=== PATIENT | female | born 1935 | race Caucasian/White ===

== ENCOUNTER 2019-11-01 11:06 | Day surgery (SDC) | payer MEDICARE, BC ==
[2019-11-01] MEDS ORDERED: Depo-Medrol 40 MG/ML IM ONE (11:07)
[2019-11-01] MEDS ORDERED: Xylocaine 1% Vial 30 ML PF IJ ONE (11:07)
[2019-11-01] MEDS ORDERED: Marcaine 0.5% SDV 10 ML IJ ONE (11:07)
[2019-11-01] MEDS ORDERED: DIPRIVAN 200 MG/20 ML IV ONE (12:42)
[2019-11-01] MEDS ORDERED: Ketamine HCl 50 MG/ML ONE (12:42)
--- NOTE | 2019-11-01 13:49 | XRAY ---
20 seconds fluoroscopy time in surgery for bilateral SI joints.
--- NOTE | 2019-11-01 13:49 | XRAY ---
Indication: Bilateral SI joint injection. Intraoperative fluoroscopy was provided for 20 seconds. 4 digital spot images submitted for interpretation demonstrates posterior needle tip projecting over the inferior left and right SI joints. Correlate with intraoperative findings/report. Incidental partially visualized lower lumbar posterior fixation hardware.
[2019-11-01] MEDS ORDERED: Lactated Ringers 1,000 ML IV ONE (15:56)
== END 2019-11-01 13:10 | disposition home or self-care (01) ==
LOC: SDC-PAIN 11:06
PROVIDERS: ATTEND Psychiatry & Neurology Pain Medicine
DX: M46.1 Sacroiliitis, not elsewhere classified (principal); I10 Essential (primary) hypertension; R01.1 Cardiac murmur, unspecified; G47.30 Sleep apnea, unspecified; Z86.718 Personal history of other venous thrombosis and embolism; Z79.01 Long term (current) use of anticoagulants; Z79.899 Other long term (current) drug therapy
CPT/HCPCS: 72202; 77002; G0260; 27096; 99100; J1030; J2001; J2704

== ENCOUNTER 2020-02-21 11:39 | Day surgery (SDC) | payer MEDICARE, BC ==
[~2020-02-21 11:39] MED LIST: DIPRIVAN 200 MG/20 ML IV ONE; Ketamine HCl 50 MG/ML ONE
[2020-02-21] MEDS ORDERED: Decadron 4 MG INJ IV ONE (11:40)
[2020-02-21] MEDS ORDERED: Xylocaine-Mpf 2% 5 Ml Vial IJ ONE (11:40)
--- NOTE | 2020-02-21 14:32 | XRAY ---
Indication: Right C2-C4 MBB. Intraoperative fluoroscopy was provided for 34 seconds. 2 digital spot images submitted for interpretation demonstrates posterior needle tips projecting over the expected right C2-C4 nerve roots. Correlate with intraoperative findings/report.
--- NOTE | 2020-02-21 14:34 | XRAY ---
34 seconds fluoroscopy time in surgery for right C2 -C4 MBB.
[2020-02-21] MEDS ORDERED: Lactated Ringers 1,000 ML IV ONE (16:49)
== END 2020-02-21 14:00 | disposition home or self-care (01) ==
LOC: SDC-PAIN 11:39 → EDSTATUS 18:20
PROVIDERS: ATTEND Psychiatry & Neurology Pain Medicine
DX: M47.812 Spondylosis without myelopathy or radiculopathy, cervical region (principal); I10 Essential (primary) hypertension; G47.30 Sleep apnea, unspecified; R01.1 Cardiac murmur, unspecified; Z86.718 Personal history of other venous thrombosis and embolism; Z79.899 Other long term (current) drug therapy
CPT/HCPCS: 64490; 64491; 72020; 77002; J1100; J2704

== ENCOUNTER 2020-03-13 09:30 | Day surgery (SDC) | payer MEDICARE, BC ==
[2020-03-13] MEDS ORDERED: Depo-Medrol 40 MG/ML IM ONE (09:31)
[2020-03-13] MEDS ORDERED: BUPIVACAINE 0.5% VIAL IJ ONE (09:31)
[2020-03-13] MEDS ORDERED: Ketamine HCl 50 MG/ML ONE (11:41)
[2020-03-13] MEDS ORDERED: DIPRIVAN 200 MG/20 ML IV ONE (11:41)
--- NOTE | 2020-03-13 12:56 | XRAY ---
33 seconds of fluoroscopy was used in surgery for bilateral SI joints injection.
--- NOTE | 2020-03-13 12:56 | XRAY ---
Indication: Bilateral SI joint injection. Intraoperative fluoroscopy was provided for 33 seconds. 4 digital spot images submitted for interpretation demonstrates posterior needle tip projecting over the inferior left and right SI joint. Correlate with intraoperative findings/report.
[2020-03-13] MEDS ORDERED: Lactated Ringers 1,000 ML IV ONE (15:42)
== END 2020-03-13 12:05 | disposition home or self-care (01) ==
LOC: SDC-PAIN 09:30
PROVIDERS: ATTEND Psychiatry & Neurology Pain Medicine
DX: M46.1 Sacroiliitis, not elsewhere classified (principal); I10 Essential (primary) hypertension; G47.30 Sleep apnea, unspecified; R01.1 Cardiac murmur, unspecified; Z79.899 Other long term (current) drug therapy
CPT/HCPCS: 72202; 77002; G0260; 27096; 99100; J1030; J2704

== ENCOUNTER 2021-03-05 11:04 | Day surgery (SDC) | payer MEDICARE, BC ==
[2021-03-05] MEDS ORDERED: Depo-Medrol 40 MG/ML IM ONE (11:05)
[2021-03-05] MEDS ORDERED: BUPIVACAINE 0.5% VIAL IJ ONE (11:05)
[2021-03-05] MEDS ORDERED: DIPRIVAN 200 MG/20 ML IV ONE (13:18)
[2021-03-05] MEDS ORDERED: Lactated Ringers 1,000 ML IV ONE (14:38)
--- NOTE | 2021-03-05 14:38 | XRAY ---
Indication: Left knee injection. Intraoperative fluoroscopy provided for 5 seconds. Single digital spot image submitted for interpretation demonstrates needle tip projecting over the left femur intercondylar notch. Small amount of contrast injected for needle tip placement. Correlate with intraoperative findings/report.
--- NOTE | 2021-03-05 15:10 | XRAY ---
5 seconds fluoroscopy time in surgery for intra-articular and anserine bursa injections of the left knee.
== END 2021-03-05 13:45 | disposition home or self-care (01) ==
LOC: SDC-PAIN 11:04
PROVIDERS: ATTEND Psychiatry & Neurology Pain Medicine
DX: M17.12 Unilateral primary osteoarthritis, left knee (principal); M70.52 Other bursitis of knee, left knee; I10 Essential (primary) hypertension; R01.1 Cardiac murmur, unspecified; Z79.01 Long term (current) use of anticoagulants; Z79.899 Other long term (current) drug therapy
CPT/HCPCS: 20610; 73560; 77002; J1030; J2704; Q9966

== ENCOUNTER 2021-08-21 20:51 | Emergency (ER) | payer MEDICARE, BC ==
[2021-08-21] MEDS ORDERED: solu-MEDROL 125 MG, Sterile H2O 10 ml 2 ML IV ONE ×4 (20:57→21:55)
--- NOTE | 2021-08-21 20:57 | ERPHSYRPT ---
- History of Present Illness Time Seen by Provider: 08/21/21 20:56 Source: patient, EMS Exam Limitations: clinical condition Physician History: This is an 86-year-old white female patient of Dr. Rushing who has a history of hypertension and hypothyroidism and has been coughing intermittently for 2 weeks. However the last 24 hours her coughing is worse and she has had sh ortness of breath as well. She denies chest pain. She has no abdominal pain. She said no nausea vomiting or diarrhea. Patient was brought into the emergency department via ambulance service. Her room air oxygenation upon arrival is 94 to 96%. Timing/Duration: week(s) (2) Activities at Onset: activity Severity of Dyspnea-Max: moderate Severity of Dyspnea-Current: mild (To moderate) Possible Cause: occasional episodes Associated Symptoms: cough, No chest pain/discomfort, No wheezing Allergies/Adverse Reactions: methotrexate Adverse Reaction (Severe, Verified 08/21/21 21:39) Lightheadedness Home Medications: Amoxicillin/Potassium Clav [Amox-Clav 875-125 mg Tablet] 1 tab PO BID 08/21/21 [History] Benzonatate 100 mg PO TID 08/21/21 [History] Carvedilol 6.25 mg [Coreg 6.25 MG] 1 tab PO BID 08/21/21 [History] Famotidine 40 mg PO DAILY 08/21/21 [History] Levothyroxine Sodium [Levothyroxine] 25 mcg PO DAILY 08/21/21 [History] Metoprolol Succinate 50 mg [Toprol Xl 50 MG] 1 tab PO HS 08/21/21 [History] Tramadol HCl 50 mg [Ultram 50 mg] 1 tab PO QID PRN 08/21/21 [History] Travel Risk - International Travel Have you traveled outside of the country in past 3 weeks: No - Coronavirus Screening Are you exhibiting any of the following symptoms?: Yes Symptoms: Cough: New Onset, Shortness of Breath Close contact with a COVID-19 positive Pt in past 14-21 Days: No - Review of Systems Constitutional: No Symptoms Eyes: No Symptoms Ears, Nose, & Throat: No Symptoms Respiratory: Cough, Dyspnea Cardiac: No Symptoms Abdominal/Gastrointestinal: No Symptoms Genitourinary Symptoms: No Symptoms Musculoskeletal: No Symptoms Skin: No Symptoms Neurological: No Symptoms Psychological: No Symptoms Endocrine: No Symptoms Hematologic/Lymphatic: No Symptoms Immunological/Allergic: No Symptoms All Other Systems: Reviewed and Negative - Past Medical History Pertinent Past Medical History: Yes Neurological History: Stroke Cardiac History: Arrhythmia, Coronary Artery Disease, High Cholesterol, Hypertension, Myocardial Infarction ([place]) Respiratory History: Bronchitis Endocrine Medical History: Hypothyroidism Musculoskeletal History: Degenerative Disk Disease Other Medical History: DEPRESSION, 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 SX HX LUMBAR LAMINECTOMY AND FUSION 2018, RIGHT CAROTID ENDARTERECTOMY - Nursing Vital Signs Nursing Vital Signs: Initial Vital Signs Temperature 99.5 F 08/21/21 20:52 Pulse Rate 104 H 08/21/21 20:52 Respiratory Rate 20 08/21/21 20:52 Blood Pressure 167/85 08/21/21 20:52 O2 Sat by Pulse Oximetry 95 08/21/21 20:52 Pain Scale Pain Intensity 0 - Physical Exam General Appearance: mild distress, alert, anxiety, obese Eye Exam: PERRL/EOMI, eyes nml inspection Ears, Nose, Throat Exam: hearing grossly normal, normal ENT inspection, normal pharynx Neck Exam: normal inspection, non-tender, supple, full range of motion Respiratory Exam: normal breath sounds, lungs clear, airway intact, No chest tenderness, No respiratory distress Cardiovascular/Chest Exam: normal heart sounds, regular rate/rhythm Abdominal/Gastrointestinal Exam: soft, normal bowel sounds, No tenderness Rectal Exam: not done Extremity Exam: non-tender Neurologic Exam: alert, oriented x 3, cooperative, 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 tested, normal mood/affect, sensation nml Skin Exam: normal color, warm, dry Lymphatic Exam: No adenopathy SpO2 Interpretation: normal O2 Delivery: Room Air Ordered Tests: Active Orders 24 hr Category Date Time Status Fire Warden STAT Care 08/21/21 20:57 Active EKG-ER Only STAT Care 08/21/21 20:57 Active IV Insertion STAT Care 08/21/21 20:57 Active Pulse Oximetry (ED) STAT Care 08/21/21 20:57 Active CHEST 1 VIEW (PORTABLE) Stat Exams 08/21/21 21:34 Taken CHEST WITH CONTRAST [CT] Stat Exams 08/21/21 22:52 Taken BLOOD CULTURE Stat Lab 08/21/21 21:40 Received CBC W DIFF Stat Lab 08/21/21 21:00 Completed CMP Stat Lab 08/21/21 21:00 Completed CULTURE,SPUTUM Stat Lab 08/21/21 21:16 Ordered D-DIMER QUANTITATIVE Stat Lab 08/21/21 21:40 Completed Lactic Acid Stat Lab 08/21/21 21:13 Completed NT PRO BNP Stat Lab 08/21/21 21:00 Completed TROPONIN Q3H Lab 08/21/21 21:00 Completed TROPONIN Q3H Lab 08/22/21 00:00 Ordered TROPONIN Q3H Lab 08/22/21 03:00 Ordered TROPONIN Q3H Lab 08/22/21 06:00 Ordered TROPONIN Q3H Lab 08/22/21 09:00 Ordered Medication Summary Discontinued Medications Generic Name Dose Route Start Last Admin Trade Name Freq PRN Reason Stop Dose Admin Hydrocodone Bitart/Acetaminophen 10 ml 08/21/21 21:55 08/21/21 22:01 Hydrocodone/Acetaminophen 5 Ml Udcup PO 08/21/21 21:56 10 ml STAT STA Administration Hydrocodone Bitart/Acetaminophen Confirm 08/21/21 22:00 Hydrocodone/Acetaminophen 5 Ml Udcup Administered 08/21/21 22:01 Dose 10 ml .ROUTE .STK-MED ONE Methylprednisolone Sodium 0 mg 08/21/21 20:57 08/21/21 21:11 Succinate 125 mg/ Sterile IV 08/21/21 20:58 125 mg Water 2 ml STAT ONE Administration Methylprednisolone Sodium 0 mg 08/21/21 21:55 08/21/21 22:01 Succinate 125 mg/ Sterile IV 08/21/21 21:56 Not Given Water 2 ml STAT ONE Sodium Chloride 500 mls @ 500 mls/hr 08/21/21 22:29 08/21/21 22:35 Sodium Chloride 0.9% 500 Ml IV 08/21/21 23:28 500 mls/hr .Q1H ONE Administration Sodium Chloride Confirm 08/21/21 22:35 Sodium Chloride 0.9% 500 Ml Administered 08/21/21 22:36 Dose 500 mls @ ud IV .STK-MED ONE Methylprednisolone Sodium Succinate Confirm 08/21/21 21:08 Methylprednis Sod Succ 125 Mg/2 Ml Vial Administered 08/21/21 21:09 Dose 125 mg .ROUTE .STK-MED ONE Sterile Water Confirm 08/21/21 21:08 Water For Injection,Sterile 10 Ml Vial Administered 08/21/21 21:09 Dose 10 ml IJ .STK-MED ONE Lab/Rad Data: Laboratory Result Diagrams 08/21/21 21:00 08/21/21 21:00 Laboratory Results 08/21/21 08/21/21 08/21/21 Range/Units 22:15 21:40 21:40 WBC (4.0-10.5) K/mm3 RBC (4.1-5.4) M/mm3 Hgb (12.0-16.0) gm/dl Hct (35-47) % MCV (78-100) fl MCH (26-32) pg MCHC (32-36) g/dl RDW (11.5-14.0) % Plt Count (150-450) K/mm3 MPV (7.5-11.0) fl Gran % (36.0-66.0) % Eos # (Auto) (0-0.5) Absolute Lymphs (auto) (1.0-4.6) Absolute Monos (auto) (0.0-1.3) Lymphocytes % (24.0-44.0) % Monocytes % (0.0-12.0) % Eosinophils % (0.00-5.0) % Basophils % (0.0-0.4) % Absolute Granulocytes (1.4-6.9) Basophils # (0-0.4) D-Dimer 640 H* (215-500) ng/mL Sodium (137-145) mmol/L Potassium (3.5-5.1) mmol/L Chloride (98-107) mmol/L Carbon Dioxide (22-30) mmol/L Anion Gap (5-15) MEQ/L BUN (7-17) mg/dL Creatinine (0.52-1.04) mg/dL Estimated GFR ML/MIN Glucose (74-106) mg/dL Lactic Acid (0.4-2.0) Calcium (8.4-10.2) mg/dL Total Bilirubin (0.2-1.3) mg/dL AST (14-36) U/L ALT (0-35) U/L Alkaline Phosphatase (38-126) U/L Troponin I (0.000-0.034) ng/mL NT-Pro-B Natriuret Pep (0-1800) pg/mL Serum Total Protein (6.3-8.2) g/dL Albumin (3.5-5.0) g/dL Influenza Type A Ag NEGATIVE (NEGATIVE) Influenza Type B Ag NEGATIVE (NEGATIVE) RSV (PCR) NEGATIVE (Negative) SARS-CoV-2 (PCR) NEGATIVE (NEGATIVE) Group A Strep Antibody NOT DETECTED (NEGATIVE) 08/21/21 08/21/21 08/21/21 Range/Units 21:13 21:00 21:00 WBC (4.0-10.5) K/mm3 RBC (4.1-5.4) M/mm3 Hgb (12.0-16.0) gm/dl Hct (35-47) % MCV (78-100) fl MCH (26-32) pg MCHC (32-36) g/dl RDW (11.5-14.0) % Plt Count (150-450) K/mm3 MPV (7.5-11.0) fl Gran % (36.0-66.0) % Eos # (Auto) (0-0.5) Absolute Lymphs (auto) (1.0-4.6) Absolute Monos (auto) (0.0-1.3) Lymphocytes % (24.0-44.0) % Monocytes % (0.0-12.0) % Eosinophils % (0.00-5.0) % Basophils % (0.0-0.4) % Absolute Granulocytes (1.4-6.9) Basophils # (0-0.4) D-Dimer (215-500) ng/mL Sodium 138 (137-145) mmol/L Potassium 4.1 (3.5-5.1) mmol/L Chloride 104 (98-107) mmol/L Carbon Dioxide 22 (22-30) mmol/L Anion Gap 16.0 H (5-15) MEQ/L BUN 20 H (7-17) mg/dL Creatinine 0.95 (0.52-1.04) mg/dL Estimated GFR 59.6 ML/MIN Glucose 127 H (74-106) mg/dL Lactic Acid 1.2 (0.4-2.0) Calcium 8.7 (8.4-10.2) mg/dL Total Bilirubin 0.90 (0.2-1.3) mg/dL AST 31 (14-36) U/L ALT 19 (0-35) U/L Alkaline Phosphatase 51 (38-126) U/L Troponin I 0.021 (0.000-0.034) ng/mL NT-Pro-B Natriuret Pep 1340 (0-1800) pg/mL Serum Total Protein 7.3 (6.3-8.2) g/dL Albumin 3.9 (3.5-5.0) g/dL Influenza Type A Ag (NEGATIVE) Influenza Type B Ag (NEGATIVE) RSV (PCR) (Negative) SARS-CoV-2 (PCR) (NEGATIVE) Group A Strep Antibody (NEGATIVE) 08/21/21 Range/Units 21:00 WBC 8.2 (4.0-10.5) K/mm3 RBC 3.41 L (4.1-5.4) M/mm3 Hgb 10.9 L (12.0-16.0) gm/dl Hct 33.7 L (35-47) % MCV 98.8 (78-100) fl MCH 32.0 (26-32) pg MCHC 32.3 (32-36) g/dl RDW 13.7 (11.5-14.0) % Plt Count 140 L (150-450) K/mm3 MPV 10.3 (7.5-11.0) fl Gran % 81.8 H (36.0-66.0) % Eos # (Auto) 0.06 (0-0.5) Absolute Lymphs (auto) 0.75 L (1.0-4.6) Absolute Monos (auto) 0.67 (0.0-1.3) Lymphocytes % 9.1 L (24.0-44.0) % Monocytes % 8.2 (0.0-12.0) % Eosinophils % 0.7 (0.00-5.0) % Basophils % 0.2 (0.0-0.4) % Absolute Granulocytes 6.71 (1.4-6.9) Basophils # 0.02 (0-0.4) D-Dimer (215-500) ng/mL Sodium (137-145) mmol/L Potassium (3.5-5.1) mmol/L Chloride (98-107) mmol/L Carbon Dioxide (22-30) mmol/L Anion Gap (5-15) MEQ/L BUN (7-17) mg/dL Creatinine (0.52-1.04) mg/dL Estimated GFR ML/MIN Glucose (74-106) mg/dL Lactic Acid (0.4-2.0) Calcium (8.4-10.2) mg/dL Total Bilirubin (0.2-1.3) mg/dL AST (14-36) U/L ALT (0-35) U/L Alkaline Phosphatase (38-126) U/L Troponin I (0.000-0.034) ng/mL NT-Pro-B Natriuret Pep (0-1800) pg/mL Serum Total Protein (6.3-8.2) g/dL Albumin (3.5-5.0) g/dL Influenza Type A Ag (NEGATIVE) Influenza Type B Ag (NEGATIVE) RSV (PCR) (Negative) SARS-CoV-2 (PCR) (NEGATIVE) Group A Strep Antibody (NEGATIVE) - Progress Progress: improved, re-examined Air Movement: good Progress Note: 08/21/21 22:24 Chest x-ray shows question of right pulmonary nodules. In addition, left side shows a small pleural effusion. 08/22/21 00:00 Medical decision making: This patient states she is feeling much better than when she came into the hospital. Her room air oxygenation saturation levels are approximately 94 to 96%. Her CAT scan of the chest with contrast does not show a pulmonary embolus. She does have bibasilar alveolitis. In my opinion this could be viral in origin. However, sometimes it is difficult to tell and the patient has had symptoms for 2 weeks. I think it is reasonable to place her on antibiotics as well as providing her prescription for hydrocodone elixir, oral steroids and more antibiotics. Patient does not want to stay. She wants to go home. She does not want to be admitted or transferred to any other facility. 08/22/21 00:02 Blood Culture(s) Obtained: Yes Counseled pt/family regarding: lab results, diagnosis, need for follow-up, rad results - Departure Departure Disposition: Home Clinical Impression: Pulmonary alveolitis, Bronchitis Condition: Stable Critical Care Time: No Referrals: Rosanne RUSHING [Primary Care Provider] - Follow up/PCP as directed Additional Instructions: Take your medication as prescribed. Return to emergency department if symptoms worsen. Follow-up with your primary care physician later today to make arrangements for follow-up appointment for further evaluation management for persistent symptoms. Prescriptions: Hydrocodone/Acetaminophen [Hydrocodone-Acetamn 7.5-325/15] 10 ml PO Q8H PRN PRN #120 ml MDD 30 ml PRN Reason: Cough Cefdinir 300 mg PO BID #14 cap Prednisone 10 mg [Deltasone 10 mg] 10 mg PO TID #12 tablet
[2021-08-21] MEDS ORDERED: solu-MEDROL ONE (21:08)
[2021-08-21] MEDS ORDERED: Sterile H2O 10 ml IJ ONE (21:08)
[2021-08-21 21:14] LABS: Absolute Neutrophil Ct (ANC) 6.71 (1.4-6.9); Basophil (Absolute #) 0.02 (0-0.4); Eosinophil % 0.7 % (0.00-5.0); Eosinophil (Absolute #) 0.06 (0-0.5); Hematocrit 33.7 % (35-47); Hemoglobin 10.9 gm/dl (12.0-16.0); Lymphocyte (Absolute #) 0.75 (1.0-4.6); Lymphocytes % 9.1 % (24.0-44.0); Mean Cell Volume 98.8 fl (78-100); Mean Corpuscular Hgb Concent. 32.3 g/dl (32-36); Mean Platelet Volume 10.3 fl (7.5-11.0); Monocyte (Absolute #) 0.67 (0.0-1.3); Monocytes % 8.2 % (0.0-12.0); Neutrophil % 81.8 % (36.0-66.0); Platelet Count 140 K/mm3 (150-450); Red Blood Count 3.41 M/mm3 (4.1-5.4); Red Cell Distribution Width 13.7 % (11.5-14.0); White Blood Count 8.2 K/mm3 (4.0-10.5)
[2021-08-21 21:38] LABS: ALBUMIN 3.9 g/dL (3.5-5.0); BILIRUBIN,TOTAL 0.9 mg/dL (0.2-1.3); Calcium 8.7 mg/dL (8.4-10.2); Creatinine 1 0.95 mg/dL (0.52-1.04); EST GLOMERULAR FILTRATION RATE 59.6 ML/MIN; Potassium 4.1 mmol/L (3.5-5.1); Total Protein 7.3 g/dL (6.3-8.2)
[2021-08-21] MEDS ORDERED: HYDROCODONE-ACETAMIN 2.5-108/5 ML SOLUTION PO STA (21:55)
[2021-08-21] MEDS ORDERED: HYDROCODONE-ACETAMIN 2.5-108/5 ML SOLUTION ONE (22:00)
[2021-08-21 22:29] LABS: INFLUENZA A NEGATIVE (NEGATIVE); INFLUENZA B NEGATIVE (NEGATIVE); RESPIRATORY SYNCTIAL VIRUS NEGATIVE (Negative); SARS-CoV-2 Xpert Express NEGATIVE (NEGATIVE)
[2021-08-21] MEDS ORDERED: Sodium Chloride 0.9% 500 ML 500 ML IV ONE ×2 (22:29→22:35)
[2021-08-22] MEDS ORDERED: HYDROCODONE-ACETAMIN 2.5-108/5 ML SOLUTION PO STA (00:07)
[2021-08-22 00:08] VITALS: BP 142/89; PULSE 96; O2SAT 94
[2021-08-22] MEDS ORDERED: Levofloxacin 250MG Tablet PO ONE (00:11)
[2021-08-22] MEDS ORDERED: Levofloxacin 250MG Tablet ONE (00:21)
[2021-08-22] MEDS ORDERED: HYDROCODONE-ACETAMIN 2.5-108/5 ML SOLUTION ONE (00:22)
--- NOTE | 2021-08-22 09:10 | XRAY ---
Indication: Fever, cough, and short of breath. Elevated d-dimer. History PE. Current blood thinner therapy. Multiple contiguous axial images obtained through the chest using 100 cc Isovue 370 contrast and PE protocol. Comparison: None There is good opacification of the pulmonary arteries to include the lobar and segmental branches. No pulmonary embolus. Heart not enlarged. Aorta is mildly arteriosclerotic without aneurysm/dissection. No pathologic mediastinal/hilar lymphadenopathy. Small hiatal hernia. Lungs demonstrates subtle hazy groundglass opacities in both lower lobes. Also mild left lower lobe subsegmental atelectasis/scarring and a few right lung calcified granulomas. No effusion. Bony thorax intact with osteopenia and moderate degenerative changes throughout the spine. Limited upper abdomen demonstrates hepatic cysts, largest in the right lobe measuring 11 cm. Impression: 1. Negative pulmonary embolus. 2. Subtle bilateral lower lobe hazy groundglass opacities probably pneumonia based on clinical history. 3. Incidental left lower lobe subsegmental atelectasis/scarring, small hiatal hernia, chronic bony findings, hepatic cysts, and old granulomatous disease. Comment: Preliminary interpretation made by [facility]. No critical discrepancy.
--- NOTE | 2021-08-22 09:12 | XRAY ---
Indication: Fever and cough. Comparison: None Portable chest demonstrates mild left base infiltrate versus atelectasis without consolidation/large effusion. Remaining heart and lungs unremarkable with incidental right lung calcified granulomas. Bony thorax intact with mild osteopenia and degenerative changes.
== END 2021-08-22 00:39 | disposition home or self-care (01) ==
LOC: ED 20:51
DX: J40 Bronchitis, not specified as acute or chronic (principal); J84.112 Idiopathic pulmonary fibrosis; R05.9 Cough, unspecified; R06.02 Shortness of breath; E78.5 Hyperlipidemia, unspecified; I10 Essential (primary) hypertension; Z79.891 Long term (current) use of opiate analgesic; Z79.899 Other long term (current) drug therapy; Z79.52 Long term (current) use of systemic steroids
CPT/HCPCS: 0241U; 36000; 36415; 71045; 71260; 80053; 83605; 83880; 84484; 85025; 85379; 87040; 87070; 87651; 93005; 93041; 94760; 96360; 96374; 99285; J2930; A9270-GY

== ENCOUNTER 2022-02-23 09:16 | Emergency (ER) | payer MEDICARE, BC ==
[2022-02-23] MEDS ORDERED: Sodium Chloride 0.9% 1000 ML 1,000 ML IV SCH (10:00)
[2022-02-23] MEDS ORDERED: Sodium Chloride 0.9% 1000 ML 1,000 ML ONE (10:11)
[2022-02-23 10:19] LABS: Basophil (Absolute #) 0.04 x10^3/uL (0-0.4); Eosinophil % 1.8 % (0.00-5.0); Eosinophil (Absolute #) 0.15 x10^3/uL (0-0.5); Hemoglobin 10.5 g/dL (12.0-16.0); Lymphocyte (Absolute #) 1.25 x10^3/uL (1.0-4.6); Lymphocytes % 15.3 % (24.0-44.0); Mean Cell Volume 105.1 fL (78-100); Mean Corpuscular Hemoglobin 31.5 pg (26-32); Mean Platelet Volume 10.7 fL (7.5-11.0); Monocyte (Absolute #) 0.89 x10^3/uL (0.0-1.3); Monocytes % 10.9 % (0.0-12.0); Neutrophil % 71.1 % (36.0-66.0); Platelet Count 134 x10^3/uL (150-450); Red Blood Count 3.33 x10^6/uL (4.1-5.4); Red Cell Distribution Width 13.8 % (11.5-14.0); White Blood Count 8.2 x10^3/uL (4.0-10.5)
[2022-02-23 10:27] LABS: INR 1.25 (0.8-3.0); PTT 33.9 SECONDS (25.1-36.5)
[2022-02-23 10:32] LABS: ANION GAP 11.8 MEQ/L (5-15); BILIRUBIN,TOTAL 0.7 mg/dL (0.2-1.3); Calcium 8.9 mg/dL (8.4-10.2); Creatinine 1 1.04 mg/dL (0.52-1.04); EST GLOMERULAR FILTRATION RATE 53.5 ML/MIN; Potassium 4.3 mmol/L (3.5-5.1); Total Protein 7.6 g/dL (6.3-8.2)
--- NOTE | 2022-02-23 10:51 | XRAY ---
Indication: Vaginal bleeding. Total hysterectomy. Two-dimensional transabdominal pelvic sonogram performed. Comparison: None Uterus and both ovaries not visualized consistent with total hysterectomy. No suspicious solid/cystic mass or abnormal fluid collection. Impression: Total hysterectomy in a otherwise negative transabdominal pelvic sonogram.
--- NOTE | 2022-02-23 12:06 | XRAY ---
Indication: GI bleed. Vaginal bleeding. Multiple contiguous axial images obtained through the abdomen and pelvis using 80 cc Isovue 370 contrast. Comparison: None Lung bases demonstrates mild/moderate pleural parenchymal fibrosis/scarring, left greater than right. Heart not enlarged. Small hiatal hernia. Noncontrasted stomach and bowel loops appear nonobstructed. Transverse duodenum demonstrates 2 diverticula, largest 2.5 cm. Appendix not visualized. Scattered sigmoid diverticulosis without diverticulitis. Right mid abdomen demonstrates 1.7 x 1.3 cm mesenteric node with moderate stranding favoring adenitis. Previous hysterectomy. No free fluid/air. Gallbladder distended without gallstones or biliary distention. Liver demonstrates several hepatic cysts, largest right lobe measuring at least 11.1 x 11.9 cm. Both kidneys enhance and excrete with a few left renal cysts, largest 1.9 cm. Remaining pancreas, spleen, adrenal glands, ureters, and bladder are unremarkable. Mild scattered aortoiliac calcifications noted no AAA or pathologic retroperitoneal lymphadenopathy. Osseous structures demonstrate osteopenia, moderate/advanced multilevel thoracolumbar degenerative spondylosis, mild degenerative changes both hips, and L4-S1 spinous process fusion hardware. Impression: 1. Right lower quadrant mesenteric adenitis. No pathologic lymphadenopathy. 2. Mild distended gallbladder without gallstones. 3. Chronic findings including hiatal hernia, duodenal diverticuli, sigmoid diverticulosis, hepatic/left renal cysts, arteriosclerotic disease, and chronic bony findings.
[2022-02-23 13:00] LABS: RBC 0-2 /HPF (0-2)
[2022-02-23 13:06] LABS: Appearance CLEAR (CLEAR); Bilirubin NEGATIVE (NEGATIVE); Dipstick done @ ? MAIN LAB; Glucose NEGATIVE (NEGATIVE); Ketones NEGATIVE (NEGATIVE); Nitrite NEGATIVE (NEGATIVE); Ph 6.5 (5-6); Protein,Urine Dip NEGATIVE (Negative); RBC SMALL Ery/ul (0-5); Specific Gravity 1.015 (1.005-1.025); Urobilinogen 0.2 mg/dL (0-1)
[2022-02-23 13:07] LABS: Urine Cultured Indicated? NO
[2022-02-23 15:12] VITALS: BP 106/74; PULSE 85
[2022-02-23 15:17] VITALS: O2SAT 96
--- NOTE | 2022-02-23 15:17 | ERPHSYRPT ---
- History of Present Illness Time Seen by Provider: 02/23/22 09:45 Historian: patient Exam Limitations: no limitations Patient Subjective Stated Complaint: Pt woke this morning with blood coming from her vagina, after pt arrived to the hospital she went to the restroom in the waiting room and had blood coming from her rectum Triage Nursing Assessment: Pt brought to the ER by a family member, hypertensive, denies pain, abdomen distended and hard, pain with palpatation to the left upper quadrant, pulses normal, skin n/w/d, pt had blood a year ago coming from her rectum and stated that it was from hemrohoids, doesn't appear to be in any distress Physician History: Patient is an 87-year-old white female who presents after awakening with blood between her legs this morning. She feels like it may have been vaginal bleeding. She does have a history of vaginal bleeding and she is on Eliquis for atrial fibrillation. Timing/Duration: today Activities at Onset: none Severity of Pain-Max: none Severity of Pain-Current: none Modifying Factors: Improves With: defecating Allergies/Adverse Reactions: methotrexate Adverse Reaction (Severe, Verified 02/23/22 09:56) Lightheadedness Home Medications: Carvedilol [Coreg ] 1 tab PO BID 08/21/21 [History] Famotidine 40 mg PO DAILY 08/21/21 [History] Levothyroxine Sodium [Levothyroxine] 25 mcg PO DAILY 08/21/21 [History] Metoprolol Succinate 50 mg [Toprol Xl 50 MG] 1 tab PO HS 08/21/21 [History] Tramadol HCl 50 mg [Ultram 50 mg] 1 tab PO BID PRN 08/21/21 [History] Apixaban [Eliquis 5 mg Tablet] 5 mg PO BID 02/23/22 [History] Rosuvastatin Calcium 20 mg PO DAILY 02/23/22 [History] Hx Tetanus, Diphtheria Vaccination/Date Given: Yes Hx Influenza Vaccination/Date Given: Yes Hx Pneumococcal Vaccination/Date Given: Yes Travel Risk - International Travel Have you traveled outside of the country in past 3 weeks: No - Coronavirus Screening Are you exhibiting any of the following symptoms?: No - Vaccine Status Have you recieved a Covid-19 vaccination: Yes Concierge Manager: Moderna - Vaccination Dates Date of 2cond Vaccination (if applicable): 2020 - Review of Systems Constitutional: No Fever, No Chills Eyes: No Symptoms Ears, Nose, & Throat: No Symptoms Respiratory: No Cough, No Dyspnea Cardiac: No Chest Pain, No Edema, No Syncope Abdominal/Gastrointestinal: Other (Rectal bleeding), No Abdominal Pain, No Nausea, No Vomiting, No Diarrhea Genitourinary Symptoms: Vaginal Bleeding, No Dysuria Musculoskeletal: No Back Pain, No Neck Pain Skin: No Rash Neurological: No Dizziness, No Focal Weakness, No Sensory Changes Psychological: No Symptoms Endocrine: No Symptoms All Other Systems: Reviewed and Negative - Past Medical History Pertinent Past Medical History: Yes Neurological History: Stroke ENT History: No Pertinent History Cardiac History: Arrhythmia, Coronary Artery Disease, High Cholesterol, Hypertension, Myocardial Infarction ([place]) Respiratory History: Bronchitis Endocrine Medical History: Hypothyroidism Musculoskeletal History: Degenerative Disk Disease GI Medical History: No Pertinent History History: No Pertinent History Female Reproductive Disorders: No Pertinent History Other Medical History: DEPRESSION, 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 SX HX LUMBAR LAMINECTOMY AND FUSION 2018, RIGHT CAROTID ENDARTERECTOMY - Past Surgical History Past Surgical History: Yes Female Surgical History: Hysterectomy Other Surgical History: LUMBAR LAMINECTOMY AND FUSION 2018, RIGHT CAROTID ENDARTERECTOMY - Social History Smoking Status: Never smoker Exposure to second hand smoke: No Drug Use: none Patient Lives Alone: Yes - Nursing Vital Signs Nursing Vital Signs: Initial Vital Signs Temperature 97.4 F 02/23/22 09:39 Pulse Rate 84 02/23/22 09:39 Blood Pressure 169/89 02/23/22 09:39 O2 Sat by Pulse Oximetry 98 02/23/22 09:39 Pain Scale Pain Intensity 0 - Physical Exam General Appearance: no apparent distress, alert Eye Exam: PERRL/EOMI, eyes nml inspection Ears, Nose, Throat Exam: normal ENT inspection, pharynx normal, moist mucous membranes Neck Exam: normal inspection, non-tender, supple, full range of motion Respiratory Exam: normal breath sounds, lungs clear, No respiratory distress Cardiovascular Exam: regular rate/rhythm, normal heart sounds Gastrointestinal/Abdomen Exam: soft, No tenderness, No mass Back Exam: normal inspection, normal range of motion, No CVA tenderness, No vertebral tenderness Extremity Exam: normal inspection, normal range of motion, pelvis stable Neurologic Exam: alert, oriented x 3, cooperative, normal mood/affect, nml cerebellar function, sensation nml, No motor deficits Skin Exam: normal color, warm, dry SpO2: 96 - Course Nursing assessment & vital signs reviewed: Yes - CT Exams Abdomen/Pelvis CT Interpretation: Other (Right lower quadrant mesenteric adenitis and distended gallbladder otherwise negative) - Radiology Ultrasound Exam Pelvis Ultrasound: Other (Status post total hysterectomy negative pelvic ultrasound) Ordered Tests: Active Orders 24 hr Category Date Time Status IV Insertion STAT Care 02/23/22 09:50 Active ABDOMEN AND PELVIS W CONTRAST [CT] Stat Exams 02/23/22 11:32 Completed PELVIC [US] Stat Exams 02/23/22 10:38 Completed CBC W DIFF Stat Lab 02/23/22 10:06 Completed CMP Stat Lab 02/23/22 10:06 Completed FECAL OCCULT BLOOD - SCREENING Stat Lab 02/23/22 14:22 Completed Lactic Acid Stat Lab 02/23/22 09:50 Completed PROTIME WITH INR Stat Lab 02/23/22 10:06 Completed PTT Stat Lab 02/23/22 10:06 Completed UA W/RFX CULTURE Stat Lab 02/23/22 12:44 Completed Medication Summary Generic Name Dose Route Start Last Admin Trade Name Freq PRN Reason Stop Dose Admin Sodium Chloride 1,000 mls @ 100 mls/hr 02/23/22 10:00 02/23/22 10:13 Sodium Chloride 0.9% 1000 Ml IV 03/25/22 09:59 100 mls/hr .Q10H GURMEET Administration Lab/Rad Data: Laboratory Result Diagrams 02/23/22 10:06 02/23/22 10:06 Laboratory Results 02/23/22 02/23/22 02/23/22 Range/Units 14:22 12:44 10:06 WBC (4.0-10.5) x10^3/uL RBC (4.1-5.4) x10^6/uL Hgb (12.0-16.0) g/dL Hct (35-47) % MCV (78-100) fL MCH (26-32) pg MCHC (32-36) g/dL RDW (11.5-14.0) % Plt Count (150-450) x10^3/uL MPV (7.5-11.0) fL Gran % (36.0-66.0) % Immature Gran % (Auto) (0.00-0.4) % Nucleat RBC Rel Count (0.00-0.1) % Eos # (Auto) (0-0.5) x10^3/uL Immature Gran # (Auto) (0.00-0.03) x10^3u/L Absolute Lymphs (auto) (1.0-4.6) x10^3/uL Absolute Monos (auto) (0.0-1.3) x10^3/uL Absolute Nucleated RBC (0.00-0.01) x10^3u/L Lymphocytes % (24.0-44.0) % Monocytes % (0.0-12.0) % Eosinophils % (0.00-5.0) % Basophils % (0.0-0.4) % Absolute Granulocytes (1.4-6.9) x10^3/uL Basophils # (0-0.4) x10^3/uL PT 13.0 H (9.4-12.5) SECONDS INR 1.25 (0.8-3.0) APTT 33.9 (25.1-36.5) SECONDS Sodium (137-145) mmol/L Potassium (3.5-5.1) mmol/L Chloride (98-107) mmol/L Carbon Dioxide (22-30) mmol/L Anion Gap (5-15) MEQ/L BUN (7-17) mg/dL Creatinine (0.52-1.04) mg/dL Estimated GFR ML/MIN Glucose (74-106) mg/dL Lactic Acid (0.4-2.0) Calcium (8.4-10.2) mg/dL Total Bilirubin (0.2-1.3) mg/dL AST (14-36) U/L ALT (0-35) U/L Alkaline Phosphatase (38-126) U/L Serum Total Protein (6.3-8.2) g/dL Albumin (3.5-5.0) g/dL Urinalys Dipstick Clnc MAIN LAB Urine Color YELLOW (YELLOW) Urine Appearance CLEAR (CLEAR) Urine pH 6.5 (5-6) Ur Specific [place] 1.015 (1.005-1.025) POC Urine Protein Conf NEGATIVE (Negative) Urine Ketones NEGATIVE (NEGATIVE) Urine Nitrite NEGATIVE (NEGATIVE) Urine Bilirubin NEGATIVE (NEGATIVE) Urine Urobilinogen 0.2 (0-1) mg/dL Urine Leukocytes NEGATIVE (NEGATIVE) Urine WBC (Auto) NONE (0-5) /HPF Urine RBC (Auto) 0-2 (0-2) /HPF U Epithel Cells (Auto) NONE (FEW) /HPF Urine Bacteria (Auto) NONE (NEGATIVE) /HPF Urine RBC SMALL A (0-5) George/ul Ur Culture Indicated? NO Urine Glucose NEGATIVE (NEGATIVE) mg/dL Stool Occult Blood NEGATIVE (NEGATIVE) 02/23/22 02/23/22 02/23/22 Range/Units 10:06 10:06 09:50 WBC 8.2 (4.0-10.5) x10^3/uL RBC 3.33 L (4.1-5.4) x10^6/uL Hgb 10.5 L (12.0-16.0) g/dL Hct 35.0 (35-47) % MCV 105.1 H (78-100) fL MCH 31.5 (26-32) pg MCHC 30.0 L (32-36) g/dL RDW 13.8 (11.5-14.0) % Plt Count 134 L (150-450) x10^3/uL MPV 10.7 (7.5-11.0) fL Gran % 71.1 H (36.0-66.0) % Immature Gran % (Auto) 0.4 (0.00-0.4) % Nucleat RBC Rel Count 0.0 (0.00-0.1) % Eos # (Auto) 0.15 (0-0.5) x10^3/uL Immature Gran # (Auto) 0.03 (0.00-0.03) x10^3u/L Absolute Lymphs (auto) 1.25 (1.0-4.6) x10^3/uL Absolute Monos (auto) 0.89 (0.0-1.3) x10^3/uL Absolute Nucleated RBC 0.00 (0.00-0.01) x10^3u/L Lymphocytes % 15.3 L (24.0-44.0) % Monocytes % 10.9 (0.0-12.0) % Eosinophils % 1.8 (0.00-5.0) % Basophils % 0.5 (0.0-0.4) % Absolute Granulocytes 5.80 (1.4-6.9) x10^3/uL Basophils # 0.04 (0-0.4) x10^3/uL PT (9.4-12.5) SECONDS INR (0.8-3.0) APTT (25.1-36.5) SECONDS Sodium 139 (137-145) mmol/L Potassium 4.3 (3.5-5.1) mmol/L Chloride 108 H (98-107) mmol/L Carbon Dioxide 24 (22-30) mmol/L Anion Gap 11.8 (5-15) MEQ/L BUN 26 H (7-17) mg/dL Creatinine 1.04 (0.52-1.04) mg/dL Estimated GFR 53.5 ML/MIN Glucose 106 (74-106) mg/dL Lactic Acid 1.2 (0.4-2.0) Calcium 8.9 (8.4-10.2) mg/dL Total Bilirubin 0.70 (0.2-1.3) mg/dL AST 27 (14-36) U/L ALT 16 (0-35) U/L Alkaline Phosphatase 52 (38-126) U/L Serum Total Protein 7.6 (6.3-8.2) g/dL Albumin 4.0 (3.5-5.0) g/dL Urinalys Dipstick Clnc Urine Color (YELLOW) Urine Appearance (CLEAR) Urine pH (5-6) Ur Specific [place] (1.005-1.025) POC Urine Protein Conf (Negative) Urine Ketones (NEGATIVE) Urine Nitrite (NEGATIVE) Urine Bilirubin (NEGATIVE) Urine Urobilinogen (0-1) mg/dL Urine Leukocytes (NEGATIVE) Urine WBC (Auto) (0-5) /HPF Urine RBC (Auto) (0-2) /HPF U Epithel Cells (Auto) (FEW) /HPF Urine Bacteria (Auto) (NEGATIVE) /HPF Urine RBC (0-5) George/ul Ur Culture Indicated? Urine Glucose (NEGATIVE) mg/dL Stool Occult Blood (NEGATIVE) - Progress Progress: improved - Departure Departure Disposition: Home Clinical Impression: Rectal bleeding Condition: Stable Critical Care Time: No Referrals: Rosanne URSHING [Primary Care Provider] - Follow up/PCP as directed Instructions: Bloody Stools, Adult (DC) Additional Instructions: Hold this evening's dose of Eliquis. Resume normal dose tomorrow
== END 2022-02-23 15:26 | disposition home or self-care (01) ==
LOC: ED 09:16
DX: K62.5 Hemorrhage of anus and rectum (principal); E78.5 Hyperlipidemia, unspecified; I10 Essential (primary) hypertension; Z79.01 Long term (current) use of anticoagulants; Z79.891 Long term (current) use of opiate analgesic; Z79.899 Other long term (current) drug therapy
CPT/HCPCS: 36415; 74177; 76856; 80053; 81015; 83605; 85025; 85610; 85730; 99284; G0328; 82274

== ENCOUNTER 2022-11-11 14:01 | Day surgery (SDC) | payer MEDICARE, BC ==
[2022-11-11] MEDS ORDERED: LIDOCAINE HCL 1% 50 MG/5 ML VL PF IV ONE (14:02)
[2022-11-11] MEDS ORDERED: Depo-Medrol 40 MG/ML IM ONE (14:02)
[2022-11-11] MEDS ORDERED: DIPRIVAN 200 MG/20 ML IV ONE (15:07)
[2022-11-11] MEDS ORDERED: Lactated Ringers 1,000 ML IV ONE (16:02)
--- NOTE | 2022-11-11 16:41 | XRAY ---
Indication: Bilateral hip injections. Intraoperative fluoroscopy provided for 27 seconds. 2 digital spot images submitted for interpretation demonstrates needle tip lateral to the left/right femur necks. Small amount of contrast injected for all needle tip placement. Correlate with intraoperative findings/report.
--- NOTE | 2022-11-11 16:50 | XRAY ---
27 seconds of fluoroscopy was used in surgery for a bilateral intra-articular hip injection.
== END 2022-11-11 15:35 | disposition home or self-care (01) ==
LOC: SDC-PAIN 14:01
PROVIDERS: ATTEND Psychiatry & Neurology Pain Medicine
DX: M16.0 Bilateral primary osteoarthritis of hip (principal); Z79.899 Other long term (current) drug therapy
CPT/HCPCS: 20610; 73521; 77002; J1030; J2001; J2704; Q9966

== ENCOUNTER 2023-03-31 12:37 | Day surgery (SDC) | payer MEDICARE, BC ==
[2023-03-31] MEDS ORDERED: Depo-Medrol 40 MG/ML IM ONE (12:38)
[2023-03-31] MEDS ORDERED: BUPIVACAINE 0.5% VIAL IJ ONE (12:38)
[2023-03-31] MEDS ORDERED: DIPRIVAN 200 MG/20 ML IV ONE (16:02)
[2023-03-31] MEDS ORDERED: Lactated Ringers 1,000 ML IV ONE (16:09)
--- NOTE | 2023-03-31 16:54 | XRAY ---
Indication: Bilateral SI joint injection. Intraoperative fluoroscopy provided for 20 seconds. 4 digital spot image submitted for interpretation demonstrates posterior needle tip projecting over the left and right SI joint. Correlate with intraoperative findings/report.
--- NOTE | 2023-03-31 17:02 | XRAY ---
20 seconds of fluoroscopy was used in surgery for a bilateral sacroiliac joint injection.
== END 2023-03-31 15:52 | disposition home or self-care (01) ==
LOC: SDC-PAIN 12:37
PROVIDERS: ATTEND Psychiatry & Neurology Pain Medicine
DX: M46.1 Sacroiliitis, not elsewhere classified (principal)
CPT/HCPCS: 01992; 27096; 72202; 77002; 99100; G0260; J1030; J2704

== ENCOUNTER 2023-04-03 03:07 | Emergency (ER) | payer MEDICARE, BC ==
[2023-04-03 03:27] VITALS: TEMP 98
[2023-04-03] MEDS ORDERED: Sodium Chloride 0.9% 1000 ML 1,000 ML IV STA ×2 (03:39→04:53)
[2023-04-03] MEDS ORDERED: Sodium Chloride 0.9% 1000 ML 1,000 ML ONE ×2 (03:44→04:56)
--- NOTE | 2023-04-03 03:44 | ERPHSYRPT ---
- History of Present Illness Time Seen by Provider: 04/03/23 03:30 Historian: patient Patient Subjective Stated Complaint: pt states that she is now SOB but thinks it is because she has bilat upper abdominal pain that she had had all day yesterday but that worsened significantly around 2129. pt reports that she hasn't been nauseated but she threw up one time prior to coming to hospital. she took a PRN tramadol at approx 1999. Triage Nursing Assessment: pt brought to room 5 via wheelchair and was able to independently get self from WC to cot walking a couple of steps with slow steady gait. pt is alert and oriented times three, able to move all extremities, able to speak in complete sentences, and with resp even and unlabored. no edema or JVD noted. bilat radial and pedal pulses palpable. heart sounds regular. posterior bilat lung sounds throughout are clear. all extremities with color, sensation, ROM, and cap refill within normal limits. pt denies cp, n/v, lulu rrhea, indigestion, lightheadedness, dizziness, change in appetite, or difficulty with urination or bowel elimination. Physician History: Pt states she has had constant bilateral lower anteriolateral chest pain and LUQ/RUQ abdominal pain for the past 15.5 hours with vomiting x1, right shoulder pain and shortness of air. Aspirin Treatment Today: unknown Allergies/Adverse Reactions: methotrexate Adverse Reaction (Severe, Verified 04/03/23 03:09) Lightheadedness Home Medications: Carvedilol [Coreg ] 1 tab PO BID 08/21/21 [History] Famotidine 40 mg PO HS 08/21/21 [History] Levothyroxine Sodium [Levothyroxine] 25 mcg PO HS 08/21/21 [History] Metoprolol Succinate 50 mg [Toprol Xl 50 MG] 1 tab PO HS 08/21/21 [History] Tramadol HCl 50 mg [Ultram 50 mg] 1 tab PO BID PRN 08/21/21 [History] Apixaban [Eliquis 5 mg Tablet] 5 mg PO BID 02/23/22 [History] Rosuvastatin Calcium 20 mg PO HS 02/23/22 [History] Hx Tetanus, Diphtheria Vaccination/Date Given: Yes Hx Influenza Vaccination/Date Given: Yes (2022) Hx Pneumococcal Vaccination/Date Given: Yes (2012) Immunizations Up to Date: Yes Travel Risk - International Travel Have you traveled outside of the country in past 3 weeks: No - Coronavirus Screening Are you exhibiting any of the following symptoms?: No Close contact with a COVID-19 positive Pt in past 14-21 Days: No - Vaccine Status Have you recieved a Covid-19 vaccination: Yes Special Systems Technician: Moderna - Vaccination Dates Date of 2cond Vaccination (if applicable): 2020 - Review of Systems Constitutional: No Fever Ears, Nose, & Throat: No Throat Pain Respiratory: Dyspnea Cardiac: Chest Pain Abdominal/Gastrointestinal: Abdominal Pain, Vomiting Musculoskeletal: Joint Pain (right shouldre pain) Neurological: No Headache - Past Medical History Pertinent Past Medical History: Yes Neurological History: Stroke ENT History: No Pertinent History Cardiac History: Arrhythmia, Coronary Artery Disease, High Cholesterol, Hyper tension, Myocardial Infarction ([place]) Respiratory History: Bronchitis Endocrine Medical History: Hypothyroidism Musculoskeletal History: Degenerative Disk Disease, Osteoporosis GI Medical History: No Pertinent History History: No Pertinent History Psycho-Social History: No Pertinent History Female Reproductive Disorders: No Pertinent History Other Medical History: DEPRESSION, 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 SX HX LUMBAR LAMINECTOMY AND FUSION 2018, RIGHT CAROTID ENDARTERECTOMY - Past Surgical History Past Surgical History: Yes Neuro Surgical History: No Pertinent History Cardiac: Vascular Surgery Respiratory: No Pertinent History Gastrointestinal: No Pertinent History Genitourinary: No Pertinent History Musculoskeletal: No Pertinent History Female Surgical History: Hysterectomy Other Surgical History: LUMBAR LAMINECTOMY AND FUSION 2018, RIGHT CAROTID ENDARTERECTOMY - Social History Smoking Status: Never smoker Exposure to second hand smoke: No Drug Use: none Patient Lives Alone: Yes - Nursing Vital Signs Nursing Vital Signs: Initial Vital Signs Temperature 98.0 F 04/03/23 03:08 Pulse Rate 74 04/03/23 03:08 Respiratory Rate 18 04/03/23 03:08 Blood Pressure 152/79 04/03/23 03:08 O2 Sat by Pulse Oximetry 97 04/03/23 03:08 Pain Scale Pain Intensity 0 - Physical Exam General Appearance: alert Eye Exam: PERRL/EOMI Ears, Nose, Throat Exam: dry mucous membranes, pharyngeal erythema (mild), other (cerumen occlusion of left ear) Neck Exam: normal inspection Respiratory Exam: normal breath sounds, chest tenderness (bilateral lower anteriolateral rib pain) Cardiovascular Exam: No friction rub Gastrointestinal/Abdomen Exam: soft, normal bowel sounds Back Exam: normal inspection, No point tenderness Extremity Exam: No pedal edema Neurologic Exam: alert, cooperative, sensation nml, No motor deficits, No slurred speech Skin Exam: warm, dry SpO2 Interpretation: normal SpO2: 97 O2 Delivery: Room Air - Course Nursing assessment & vital signs reviewed: Yes EKG Interpreted by Me: RATE (92), A-fib, Other (QTc = 499) - CT Exams Abdomen/Pelvis CT Interpretation: Tele-radiologist Report (Liver is enlarged with multiple hypodense lesions. Multiple small nonobstructive renal stones. Colonic diverticulosis without evidence of diverticulitis. Vertebral spondylitic change s. Posterior internal fixation at lower lumbar vertebrae. Right lung nodules. Mild pleural thickening of LLL.) Chest CT Interpretation: Tele-radiologist Report (Bilateral pulmonary upper lobar reticulo-fibrotic scarring with bilateral pulmonary calcified nodules and right hilar calcified lymph nodes. No obvious pulmonary masses or consolidations. Minimal bilateral coastal pleural thickening. See rest of report.) Ordered Tests: Active Orders 24 hr Category Date Time Status EKG-ER Only STAT Care 04/03/23 03:39 Active IV Insertion STAT Care 04/03/23 03:39 Active ABDOMEN AND PELVIS W/0 CONTRAS [CT] Stat Exams 04/03/23 03:39 Completed CHEST WITHOUT CONTRAST [CT] Stat Exams 04/03/23 03:41 Completed AMYLASE Stat Lab 04/03/23 04:00 Completed CBC W DIFF Stat Lab 04/03/23 04:00 Completed CMP Stat Lab 04/03/23 04:00 Completed CULTURE,URINE Stat Lab 04/03/23 06:04 Received LIPASE Stat Lab 04/03/23 04:00 Completed MAGNESIUM Stat Lab 04/03/23 04:00 Completed MONO SCREEN Stat Lab 04/03/23 04:00 Completed PROTIME WITH INR Stat Lab 04/03/23 04:00 Completed PTT Stat Lab 04/03/23 04:00 Completed T4 (Thyroxine) Stat Lab 04/03/23 04:00 Completed TROPONIN Q4H Lab 04/03/23 04:00 Completed TROPONIN Q4H Lab 04/03/23 07:45 Ordered TROPONIN Q4H Lab 04/03/23 11:45 Ordered TSH [TSH, 3RD Generation] Stat Lab 04/03/23 04:00 Completed UA W/RFX UR CULTURE Stat Lab 04/03/23 06:04 Completed Medication Summary Discontinued Medications Generic Name Dose Route Start Last Admin Trade Name Tomasz PRN Reason Stop Dose Admin Sodium Chloride 1,000 mls @ 999 mls/hr 04/03/23 03:39 04/03/23 05:03 Sodium Chloride 0.9% 1000 Ml IV 04/03/23 04:39 Infused .Q1H1M STA Infusion Sodium Chloride Confirm 04/03/23 03:44 Sodium Chloride 0.9% 1000 Ml Administered 04/03/23 03:45 Dose 1,000 mls @ ud .ROUTE .STK-MED ONE Sodium Chloride 1,000 mls @ 999 mls/hr 04/03/23 04:53 04/03/23 06:10 Sodium Chloride 0.9% 1000 Ml IV 04/03/23 05:53 Infused .Q1H1M STA Infusion Sodium Chloride Confirm 04/03/23 04:56 Sodium Chloride 0.9% 1000 Ml Administered 04/03/23 04:57 Dose 1,000 mls @ ud .ROUTE .STK-MED ONE Lab/Rad Data: Laboratory Result Diagrams 04/03/23 04:00 04/03/23 04:00 Laboratory Results 04/03/23 04/03/23 04/03/23 Range/Units 06:04 04:20 04:20 WBC (4.0-10.5) x10^3/uL RBC (4.1-5.4) x10^6/uL Hgb (12.0-16.0) g/dL Hct (35-47) % MCV (78-100) fL MCH (26-32) pg MCHC (32-36) g/dL RDW (11.5-14.0) % Plt Count (150-450) x10^3/uL MPV (7.5-11.0) fL Gran % (36.0-66.0) % Immature Gran % (Auto) (0.00-0.4) % Nucleat RBC Rel Count (0.00-0.1) % Eos # (Auto) (0-0.5) x10^3/uL Immature Gran # (Auto) (0.00-0.03) x10^3u/L Absolute Lymphs (auto) (1.0-4.6) x10^3/uL Absolute Monos (auto) (0.0-1.3) x10^3/uL Absolute Nucleated RBC (0.00-0.01) x10^3u/L Lymphocytes % (24.0-44.0) % Monocytes % (0.0-12.0) % Eosinophils % (0.00-5.0) % Basophils % (0.0-0.4) % Absolute Granulocytes (1.4-6.9) x10^3/uL Basophils # (0-0.4) x10^3/uL PT (9.4-12.5) SECONDS INR (0.8-3.0) APTT (25.1-36.5) SECONDS Sodium (137-145) mmol/L Potassium (3.5-5.1) mmol/L Chloride (98-107) mmol/L Carbon Dioxide (22-30) mmol/L Anion Gap (5-15) MEQ/L BUN (7-17) mg/dL Creatinine (0.52-1.04) mg/dL Estimated GFR ML/MIN Glucose (74-106) mg/dL Calcium (8.4-10.2) mg/dL Magnesium (1.6-2.3) mg/dL Total Bilirubin (0.2-1.3) mg/dL AST (14-36) U/L ALT (0-35) U/L Alkaline Phosphatase (38-126) U/L Troponin I (0.000-0.034) ng/mL Serum Total Protein (6.3-8.2) g/dL Albumin (3.5-5.0) g/dL Amylase (30-110) U/L Lipase (23-300) U/L Thyroxine (T4) (5.53-10.96) ug/dL TSH 3rd Generation (0.47-4.68) mIU/L Urine Color Yellow (Yellow) Urine Appearance Clear (Clear) Urine pH 6.5 (4.6-8.0) Ur Specific [place] 1.015 (1.005-1.030) Urine Protein 30 (Negative) Urine Glucose (UA) Negative (Negative) mg/dL Urine Ketones Negative (Negative) Urine Blood Trace (Negative) Urine Nitrite Negative (Negative) Urine Bilirubin Negative (Negative) Urine Urobilinogen 0.2 (0.2) mg/dL Ur Leukocyte Esterase Trace A (Negative) U Hyaline Cast (Auto) NONE SEEN (0-2) /LPF Urine Microscopic RBC 3-5 (0-5) /HPF Urine Microscopic WBC 3-5 (0-5) /HPF Ur Epithelial Cells None Seen (None Seen) /HPF Urine Bacteria None Seen (None Seen) /HPF Urine Culture Reflexed YES (NO) Monoscreen (NEGATIVE) Influenza Type A Ag NEGATIVE (NEGATIVE) Influenza Type B Ag NEGATIVE (NEGATIVE) RSV (PCR) NEGATIVE (NEGATIVE) SARS-CoV-2 (PCR) NEGATIVE (NEGATIVE) Group A Strep Antibody NOT DETECTED (NEGATIVE) Slides for Path Review 04/03/23 04/03/23 04/03/23 Range/Units 04:00 04:00 04:00 WBC (4.0-10.5) x10^3/uL RBC (4.1-5.4) x10^6/uL Hgb (12.0-16.0) g/dL Hct (35-47) % MCV (78-100) fL MCH (26-32) pg MCHC (32-36) g/dL RDW (11.5-14.0) % Plt Count (150-450) x10^3/uL MPV (7.5-11.0) fL Gran % (36.0-66.0) % Immature Gran % (Auto) (0.00-0.4) % Nucleat RBC Rel Count (0.00-0.1) % Eos # (Auto) (0-0.5) x10^3/uL Immature Gran # (Auto) (0.00-0.03) x10^3u/L Absolute Lymphs (auto) (1.0-4.6) x10^3/uL Absolute Monos (auto) (0.0-1.3) x10^3/uL Absolute Nucleated RBC (0.00-0.01) x10^3u/L Lymphocytes % (24.0-44.0) % Monocytes % (0.0-12.0) % Eosinophils % (0.00-5.0) % Basophils % (0.0-0.4) % Absolute Granulocytes (1.4-6.9) x10^3/uL Basophils # (0-0.4) x10^3/uL PT 13.2 H (9.4-12.5) SECONDS INR 1.23 (0.8-3.0) APTT 29.6 (25.1-36.5) SECONDS Sodium (137-145) mmol/L Potassium (3.5-5.1) mmol/L Chloride (98-107) mmol/L Carbon Dioxide (22-30) mmol/L Anion Gap (5-15) MEQ/L BUN (7-17) mg/dL Creatinine (0.52-1.04) mg/dL Estimated GFR ML/MIN Glucose (74-106) mg/dL Calcium (8.4-10.2) mg/dL Magnesium (1.6-2.3) mg/dL Total Bilirubin (0.2-1.3) mg/dL AST (14-36) U/L ALT (0-35) U/L Alkaline Phosphatase (38-126) U/L Troponin I (0.000-0.034) ng/mL Serum Total Protein (6.3-8.2) g/dL Albumin (3.5-5.0) g/dL Amylase (30-110) U/L Lipase (23-300) U/L Thyroxine (T4) 6.76 (5.53-10.96) ug/dL TSH 3rd Generation (0.47-4.68) mIU/L Urine Color (Yellow) Urine Appearance (Clear) Urine pH (4.6-8.0) Ur Specific [place] (1.005-1.030) Urine Protein (Negative) Urine Glucose (UA) (Negative) mg/dL Urine Ketones (Negative) Urine Blood (Negative) Urine Nitrite (Negative) Urine Bilirubin (Negative) Urine Urobilinogen (0.2) mg/dL Ur Leukocyte Esterase (Negative) U Hyaline Cast (Auto) (0-2) /LPF Urine Microscopic RBC (0-5) /HPF Urine Microscopic WBC (0-5) /HPF Ur Epithelial Cells (None Seen) /HPF Urine Bacteria (None Seen) /HPF Urine Culture Reflexed (NO) Monoscreen NEGATIVE (NEGATIVE) Influenza Type A Ag (NEGATIVE) Influenza Type B Ag (NEGATIVE) RSV (PCR) (NEGATIVE) SARS-CoV-2 (PCR) (NEGATIVE) Group A Strep Antibody (NEGATIVE) Slides for Path Review 12/09/23 12/09/23 12/09/23 Range/Units 04:00 04:00 04:00 WBC (4.0-10.5) x10^3/uL RBC (4.1-5.4) x10^6/uL Hgb (12.0-16.0) g/dL Hct (35-47) % MCV (78-100) fL MCH (26-32) pg MCHC (32-36) g/dL RDW (11.5-14.0) % Plt Count (150-450) x10^3/uL MPV (7.5-11.0) fL Gran % (36.0-66.0) % Immature Gran % (Auto) (0.00-0.4) % Nucleat RBC Rel Count (0.00-0.1) % Eos # (Auto) (0-0.5) x10^3/uL Immature Gran # (Auto) (0.00-0.03) x10^3u/L Absolute Lymphs (auto) (1.0-4.6) x10^3/uL Absolute Monos (auto) (0.0-1.3) x10^3/uL Absolute Nucleated RBC (0.00-0.01) x10^3u/L Lymphocytes % (24.0-44.0) % Monocytes % (0.0-12.0) % Eosinophils % (0.00-5.0) % Basophils % (0.0-0.4) % Absolute Granulocytes (1.4-6.9) x10^3/uL Basophils # (0-0.4) x10^3/uL PT (9.4-12.5) SECONDS INR (0.8-3.0) APTT (25.1-36.5) SECONDS Sodium 140 (137-145) mmol/L Potassium 4.1 (3.5-5.1) mmol/L Chloride 106 (98-107) mmol/L Carbon Dioxide 23 (22-30) mmol/L Anion Gap 14.6 (5-15) MEQ/L BUN 33 H (7-17) mg/dL Creatinine 1.34 H (0.52-1.04) mg/dL Estimated GFR 38.6 ML/MIN Glucose 141 H (74-106) mg/dL Calcium 8.9 (8.4-10.2) mg/dL Magnesium 1.9 (1.6-2.3) mg/dL Total Bilirubin 0.70 (0.2-1.3) mg/dL AST 64 H (14-36) U/L ALT 44 H (0-35) U/L Alkaline Phosphatase 80 (38-126) U/L Troponin I < 0.012 (0.000-0.034) ng/mL Serum Total Protein 7.6 (6.3-8.2) g/dL Albumin 3.9 (3.5-5.0) g/dL Amylase 73 (30-110) U/L Lipase 67 (23-300) U/L Thyroxine (T4) (5.53-10.96) ug/dL TSH 3rd Generation 1.600 (0.47-4.68) mIU/L Urine Color (Yellow) Urine Appearance (Clear) Urine pH (4.6-8.0) Ur Specific [place] (1.005-1.030) Urine Protein (Negative) Urine Glucose (UA) (Negative) mg/dL Urine Ketones (Negative) Urine Blood (Negative) Urine Nitrite (Negative) Urine Bilirubin (Negative) Urine Urobilinogen (0.2) mg/dL Ur Leukocyte Esterase (Negative) U Hyaline Cast (Auto) (0-2) /LPF Urine Microscopic RBC (0-5) /HPF Urine Microscopic WBC (0-5) /HPF Ur Epithelial Cells (None Seen) /HPF Urine Bacteria (None Seen) /HPF Urine Culture Reflexed (NO) Monoscreen (NEGATIVE) Influenza Type A Ag (NEGATIVE) Influenza Type B Ag (NEGATIVE) RSV (PCR) (NEGATIVE) SARS-CoV-2 (PCR) (NEGATIVE) Group A Strep Antibody (NEGATIVE) Slides for Path Review 04/03/23 Range/Units 04:00 WBC 16.0 H (4.0-10.5) x10^3/uL RBC 3.19 L (4.1-5.4) x10^6/uL Hgb 10.1 L (12.0-16.0) g/dL Hct 33.1 L (35-47) % MCV 103.8 H (78-100) fL MCH 31.7 (26-32) pg MCHC 30.5 L (32-36) g/dL RDW 13.2 (11.5-14.0) % Plt Count 161 (150-450) x10^3/uL MPV 10.3 (7.5-11.0) fL Gran % 83.6 H (36.0-66.0) % Immature Gran % (Auto) 0.5 H (0.00-0.4) % Nucleat RBC Rel Count 0.0 (0.00-0.1) % Eos # (Auto) 0.02 (0-0.5) x10^3/uL Immature Gran # (Auto) 0.08 H (0.00-0.03) x10^3u/L Absolute Lymphs (auto) 0.96 L (1.0-4.6) x10^3/uL Absolute Monos (auto) 1.54 H (0.0-1.3) x10^3/uL Absolute Nucleated RBC 0.00 (0.00-0.01) x10^3u/L Lymphocytes % 6.0 L (24.0-44.0) % Monocytes % 9.6 (0.0-12.0) % Eosinophils % 0.1 (0.00-5.0) % Basophils % 0.2 (0.0-0.4) % Absolute Granulocytes 13.40 H (1.4-6.9) x10^3/uL Basophils # 0.04 (0-0.4) x10^3/uL PT (9.4-12.5) SECONDS INR (0.8-3.0) APTT (25.1-36.5) SECONDS Sodium (137-145) mmol/L Potassium (3.5-5.1) mmol/L Chloride (98-107) mmol/L Carbon Dioxide (22-30) mmol/L Anion Gap (5-15) MEQ/L BUN (7-17) mg/dL Creatinine (0.52-1.04) mg/dL Estimated GFR ML/MIN Glucose (74-106) mg/dL Calcium (8.4-10.2) mg/dL Magnesium (1.6-2.3) mg/dL Total Bilirubin (0.2-1.3) mg/dL AST (14-36) U/L ALT (0-35) U/L Alkaline Phosphatase (38-126) U/L Troponin I (0.000-0.034) ng/mL Serum Total Protein (6.3-8.2) g/dL Albumin (3.5-5.0) g/dL Amylase (30-110) U/L Lipase (23-300) U/L Thyroxine (T4) (5.53-10.96) ug/dL TSH 3rd Generation (0.47-4.68) mIU/L Urine Color (Yellow) Urine Appearance (Clear) Urine pH (4.6-8.0) Ur Specific [place] (1.005-1.030) Urine Protein (Negative) Urine Glucose (UA) (Negative) mg/dL Urine Ketones (Negative) Urine Blood (Negative) Urine Nitrite (Negative) Urine Bilirubin (Negative) Urine Urobilinogen (0.2) mg/dL Ur Leukocyte Esterase (Negative) U Hyaline Cast (Auto) (0-2) /LPF Urine Microscopic RBC (0-5) /HPF Urine Microscopic WBC (0-5) /HPF Ur Epithelial Cells (None Seen) /HPF Urine Bacteria (None Seen) /HPF Urine Culture Reflexed (NO) Monoscreen (NEGATIVE) Influenza Type A Ag (NEGATIVE) Influenza Type B Ag (NEGATIVE) RSV (PCR) (NEGATIVE) SARS-CoV-2 (PCR) (NEGATIVE) Group A Strep Antibody (NEGATIVE) Slides for Path Review YES - Progress Progress: improved Counseled pt/family regarding: lab results, diagnosis, need for follow-up, rad results Medical Desision Making - Diagnostic Testing Diagnostic test were ordered, analyzed, and reviewed by me: Yes Radiological Interpretation: Teleradiologist Report - Departure Departure Disposition: Home Clinical Impression: Chest pain, Abdominal pain, Dehydration, Dyspnea, Nausea & vomiting Condition: Stable Critical Care Time: No Referrals: Rosanne RUSHING [Primary Care Provider] - Follow up/PCP as directed Instructions: Dehydration, Adult (DC) Additional Instructions: Drink more water. Follow up with private doctor tomorrow.
[2023-04-03 04:08] LABS: BASOPHIL % 0.2 % (0.0-0.4); Basophil (Absolute #) 0.04 x10^3/uL (0-0.4); Eosinophil % 0.1 % (0.00-5.0); Eosinophil (Absolute #) 0.02 x10^3/uL (0-0.5); Hematocrit 33.1 % (35-47); Hemoglobin 10.1 g/dL (12.0-16.0); IMMATURE GRAN # 0.08 x10^3u/L (0.00-0.03); IMMATURE GRAN % 0.5 % (0.00-0.4); Lymphocyte (Absolute #) 0.96 x10^3/uL (1.0-4.6); Mean Cell Volume 103.8 fL (78-100); Mean Corpuscular Hemoglobin 31.7 pg (26-32); Mean Corpuscular Hgb Concent. 30.5 g/dL (32-36); Mean Platelet Volume 10.3 fL (7.5-11.0); Monocyte (Absolute #) 1.54 x10^3/uL (0.0-1.3); Monocytes % 9.6 % (0.0-12.0); Neutrophil % 83.6 % (36.0-66.0); Platelet Count 161 x10^3/uL (150-450); Red Blood Count 3.19 x10^6/uL (4.1-5.4); Red Cell Distribution Width 13.2 % (11.5-14.0)
[2023-04-03 04:20] LABS: ALBUMIN 3.9 g/dL (3.5-5.0); ANION GAP 14.6 MEQ/L (5-15); BILIRUBIN,TOTAL 0.7 mg/dL (0.2-1.3); Calcium 8.9 mg/dL (8.4-10.2); Creatinine 1 1.34 mg/dL (0.52-1.04); EST GLOMERULAR FILTRATION RATE 38.6 ML/MIN; MAGNESIUM 1.9 mg/dL (1.6-2.3); Potassium 4.1 mmol/L (3.5-5.1); Total Protein 7.6 g/dL (6.3-8.2)
[2023-04-03 04:22] LABS: INR 1.23 (0.8-3.0); PROTIME 13.2 SECONDS (9.4-12.5); PTT 29.6 SECONDS (25.1-36.5)
[2023-04-03 04:56] LABS: INFLUENZA A NEGATIVE (NEGATIVE); INFLUENZA B NEGATIVE (NEGATIVE); RESPIRATORY SYNCTIAL VIRUS NEGATIVE (NEGATIVE); SARS-CoV-2 Xpert Express NEGATIVE (NEGATIVE)
[2023-04-03 05:23] LABS: Slide Review 1 YES
--- NOTE | 2023-04-03 05:40 | XRAY ---
CLINICAL HISTORY:luq ruq pain COMPARISON:None. TECHNIQUE:CT of the abdomen and pelvis was performed in axial plane with sagittal and coronal reconstructed images without intravenous contrast administration. 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 Right lower lung lobe peripheral nodule seen at the lateral segment measuring about 4 mm. Mild pleural thickening of the left lower lung lobe with peripheral reticulations. Liver is enlarged, measuring 18.8 cm showing multiple hypodense lesions, largest of which is seen at the right lobe at segments 6 and 8, measuring 13 X12.5X 12.5 cm (AP X TX H) and showing soft tissue component. No dilated intrahepatic biliary radicles. Unremarkable appearing gallbladder with no stones, wall thickening or pericholecystic inflammatory changes or fluid. Fatty replacement of the pancreas is noted. Unremarkable appearing spleen. The adrenal glands are normal. Normal size of both kidneys showing decreased cortical thickness and bilateral small nonobstructive renal stones. No hydronephrosis, cysts or masses. Colonic diverticulosis without evidence of diverticulitis. Posterior internal fixation at lower lumbar vertebrae. The ureters are normal with no stones. Unremarkable abdominal aorta without specific evidence of aneurysm or dissection. The visualized distal esophagus appears unremarkable. The stomach appears unremarkable. Unremarkable appearing duodenum. Small Bowel and colon are non-distended with no abnormality. No evidence of acute appendicitis. No free air and no ascites. No free intraperitoneal air is seen. Bladder is unremarkable with no stones. Vertebral spondylitic changes. IMPRESSION: 1. Liver is enlarged with multiple hypodense lesions, largest of which showing soft tissue component, would recommend ultrasound and postcontrast CT abdomen for further evaluation. 2. Decreased cortical thickness of both kidneys, suggestive of renal medical disease, please collect clinically. Multiple small nonobstructive renal stones. 3. Colonic diverticulosis without evidence of diverticulitis. 4. Vertebral spondylitic changes. 5. Posterior internal fixation at lower lumbar vertebrae. 6. Right lung nodules, would recommend dedicated CT chest for further evaluation. 7. Mild pleural thickening of the left lower lung lobe with peripheral reticulations. Electronically Signed by: Lebron Medina MD. (04/03/2023 05:36:06 EST)
--- NOTE | 2023-04-03 05:48 | XRAY ---
CLINICAL HISTORY:bilateral chest pain COMPARISON:None. TECHNIQUE:Contiguous axial CT images of the chest were acquired without administration of intravenous contrast. Coronal and sagittal reconstructions were also obtained. FINDINGS: Bilateral pulmonary upper lobar predominantly upper segments subpleural reticulo-fibrotic scarring with tiny nodular densities associated with bilateral upper and right middle lobes variable sized calcified nodules, the largest (right upper lobe) measures about 1.8 x 1.4 cm in diameter. Right hilar calcified lymph nodes are also noted. Bilateral lower lobes, lingula and middle lobes subpleural atelectatic plates and reticular densities. No obvious pulmonary masses or consolidations. Prominent para-tracheal, prevascular, anterior mediastinal and subcarinal lymph nodes, the largest (para-tracheal) measures about 1 cm along its short axial diameter. Minimal bilateral costal pleural thickening. No free or encysted pleural effusions. The heart size is within normal. Small hiatus hernia is noted. Otherwise, no definite mass lesion in the chest wall. Left breast tiny calcific focus. Thoracolumbar spondylodegenerative changes. No osseous destruction. IMPRESSION: 1. Bilateral pulmonary upper lobar reticulo-fibrotic scarring with bilateral pulmonary calcified nodules and right hilar calcified lymph nodes, likely post granulomatous infection sequel. 2. No obvious pulmonary masses or consolidations. 3. Minimal bilateral costal pleural thickening. Electronically Signed by: Lebron Medina MD. (04/03/2023 05:43:42 EST)
[2023-04-03 05:53] VITALS: RESP 20; O2SAT 97
[2023-04-03 06:37] VITALS: BP 144/97; PULSE 94
[2023-04-03 06:43] LABS: Appearance Clear (Clear); Bacteria None Seen /HPF (None Seen); Bilirubin Negative (Negative); Blood Trace (Negative); Epithelial Cells None Seen /HPF (None Seen); Glucose, Urine Negative (Negative); Hyaline Casts NONE SEEN /LPF (0-2); Ketones Negative (Negative); Leukocyte Esterase Trace (Negative); Nitrite Negative (Negative); Ph 6.5 (4.6-8.0); Protein,Urine Dip 30 (Negative); Specific Gravity 1.015 (1.005-1.030); Urobilinogen 0.2 mg/dL (0.2)
[2023-04-03 06:48] LABS: ADD URINE CULTURE? YES (NO)
== END 2023-04-03 07:05 | disposition home or self-care (01) ==
LOC: ED 03:07
DX: R07.9 Chest pain, unspecified (principal); R10.12 Left upper quadrant pain; R10.11 Right upper quadrant pain; E86.0 Dehydration; R06.00 Dyspnea, unspecified; R11.2 Nausea with vomiting, unspecified; M25.511 Pain in right shoulder; E78.5 Hyperlipidemia, unspecified; I10 Essential (primary) hypertension; Z79.01 Long term (current) use of anticoagulants; Z79.891 Long term (current) use of opiate analgesic; Z79.899 Other long term (current) drug therapy; Z20.828 Contact with and (suspected) exposure to other viral communicable diseases
CPT/HCPCS: 0241U; 36000; 36415; 71250; 74176; 80053; 81001; 82150; 83690; 83735; 84436; 84443; 84484; 85025; 85610; 85730; 86308; 87077; 87086; 87186; 87651; 93005; 96360; 96361; 99284

== ENCOUNTER 2023-04-04 09:00 | Inpatient (IN) | payer BC, MEDICARE, OTHER ==
[2023-04-04] MEDS ORDERED: DUONEB 0.5-3 MG/3 ml Neb IH ONE ×2 (09:26→10:24)
[2023-04-04 10:00] LABS: Hematocrit 15.8 % (35-47); Mean Cell Volume 100.6 fL (78-100); Mean Corpuscular Hemoglobin 31.8 pg (26-32); Mean Corpuscular Hgb Concent. 31.6 g/dL (32-36); Mean Platelet Volume 11.1 fL (7.5-11.0); Platelet Count 92 x10^3/uL (150-450); Red Blood Count 1.57 x10^6/uL (4.1-5.4); Red Cell Distribution Width 13.4 % (11.5-14.0); White Blood Count 14.9 x10^3/uL (4.0-10.5)
[2023-04-04] MEDS ORDERED: Sodium Chloride 0.9% 1000 ML 1,000 ML IV SCH (10:30)
[2023-04-04 10:34] LABS: INFLUENZA A NEGATIVE (NEGATIVE); INFLUENZA B NEGATIVE (NEGATIVE); RESPIRATORY SYNCTIAL VIRUS NEGATIVE (NEGATIVE); SARS-CoV-2 Xpert Express NEGATIVE (NEGATIVE)
[2023-04-04] MEDS ORDERED: PROTONIX 40 MG IV IV ONE ×3 (10:41→10:57)
[2023-04-04 10:42] LABS: ALBUMIN 3.5 g/dL (3.5-5.0); BILIRUBIN,TOTAL 1.4 mg/dL (0.2-1.3); Calcium 8.4 mg/dL (8.4-10.2); Creatinine 1 0.9 mg/dL (0.52-1.04); EST GLOMERULAR FILTRATION RATE 62.3 ML/MIN; MAGNESIUM 1.6 mg/dL (1.6-2.3); PROCALCITONIN 0.39 ng/mL (0.030-0.080); Potassium 3.8 mmol/L (3.5-5.1)
[2023-04-04 10:44] LABS: INR 1.44 (0.8-3.0); PROTIME 15.3 SECONDS (9.4-12.5)
[2023-04-04 11:04] LABS: ANISOCYTOSIS 1+; Hypochromia 2+; Lymphocytes 6 % (24-44); Macrocytosis 1+; Monocyte 2 % (0.0-12.0); Neutrophils 92 % (36.0-66.0); Platelet Estimate DECREASED (NORMAL); Total Cells Counted 100; Toxic Granulation 1+
[2023-04-04 12:10] LABS: ABO TYPING A; Antibody Screen NEGATIVE (NEGATIVE); RH TYPING POSITIVE
[2023-04-04 12:12] LABS: CROSS MATCH (PRBC) COMPATIBLE (COMPATIBLE)
--- NOTE | 2023-04-04 12:36 | ERPHSYRPT ---
- History of Present Illness Time Seen by Provider: 04/04/23 09:05 Source: patient, EMS Exam Limitations: no limitations Patient Subjective Stated Complaint: Pt was here yesterday and returns today with the same issues only worse, SOB, entire body aches, weakness Triage Nursing Assessment: Pt brought to the ER by EMS, tachycardic, tachypnic, rates pain as 7/10, weak, was trying to get to the kitchen to take her meds and was unable to make it, lungs diminshed and clear, pulses normal, skin sallow Physician History: 88 years old female with multiple medical problems including atrial fibrillation on Eliquis who was evaluated yesterday morning for generalized weakness, anterolateral chest wall pain and some upper abdominal discomfort with nausea and vomiting presents with worsening of generalized weakness and getting short of breath with couple of steps without any chest pain. Patient does report minimal nonproductive cough at times. She was tested negative for COVID-19 yesterday. She has nausea but no vomiting today. No diarrhea or dark stools reported. Patient looks pale with delayed cap refill but denies any bright red blood per rectum or dark stool but does report vomiting/spitting up dark frothy stuff yesterday. Denies pain anywhere. EKG is atrial fibrillation at a rate of 111 with normal axis no ST elevations Allergies/Adverse Reactions: methotrexate Adverse Reaction (Severe, Verified 04/04/23 09:18) Lightheadedness Home Medications: Carvedilol [Coreg ] 1 tab PO BID 08/21/21 [History] Famotidine 40 mg PO HS 08/21/21 [History] Levothyroxine Sodium [Levothyroxine] 25 mcg PO HS 08/21/21 [History] Tramadol HCl 50 mg [Ultram 50 mg] 1 tab PO TID PRN 08/21/21 [History] Apixaban [Eliquis 5 mg Tablet] 5 mg PO BID 02/23/22 [History] Rosuvastatin Calcium 20 mg PO HS 02/23/22 [History] Benzonatate 200 mg PO TID 04/04/23 [History] Topiramate 50 mg PO HS 04/04/23 [History] Hx Tetanus, Diphtheria Vaccination/Date Given: Yes Hx Influenza Vaccination/Date Given: Yes (2022) Hx Pneumococcal Vaccination/Date Given: Yes (2012) Travel Risk - International Travel Have you traveled outside of the country in past 3 weeks: No - Coronavirus Screening Are you exhibiting any of the following symptoms?: Yes Symptoms: Shortness of Breath, Headaches/Body Aches/Fatigue Close contact with a COVID-19 positive Pt in past 14-21 Days: No - Vaccine Status Have you recieved a Covid-19 vaccination: Yes Ammonia Still Operator: Moderna - Vaccination Dates Date of 2cond Vaccination (if applicable): 2020 - Review of Systems Constitutional: Fatigue, Weakness Eyes: No Symptoms Ears, Nose, & Throat: No Symptoms Respiratory: Dyspnea, Dyspnea on Exertion (BEAR) Cardiac: Palpitations Abdominal/Gastrointestinal: Nausea Genitourinary Symptoms: No Symptoms Musculoskeletal: Arthralgias Skin: No Symptoms Neurological: No Symptoms Endocrine: No Symptoms Hematologic/Lymphatic: Easy Bleeding Immunological/Allergic: No Symptoms - Past Medical History Pertinent Past Medical History: Yes Neurological History: Stroke ENT History: No Pertinent History Cardiac History: Arrhythmia, Coronary Artery Disease, High Cholesterol, Hypertension, Myocardial Infarction ([place]) Respiratory History: Bronchitis Endocrine Medical History: Hypothyroidism Musculoskeletal History: Degenerative Disk Disease, Osteoporosis GI Medical History: No Pertinent History History: No Pertinent History Psycho-Social History: No Pertinent History Female Reproductive Disorders: No Pertinent History Other Medical History: DEPRESSION, 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 SX HX LUMBAR LAMINECTOMY AND FUSION 2018, RIGHT CAROTID ENDARTERECTOMY - Past Surgical History Past Surgical History: Yes Neuro Surgical History: No Pertinent History Cardiac: Vascular Surgery Respiratory: No Pertinent History Gastrointestinal: No Pertinent History Genitourinary: No Pertinent History Musculoskeletal: No Pertinent History Female Surgical History: Hysterectomy Other Surgical History: LUMBAR LAMINECTOMY AND FUSION 2018, RIGHT CAROTID ENDARTERECTOMY - Social History Smoking Status: Never smoker Exposure to second hand smoke: No Drug Use: none Patient Lives Alone: Yes - Nursing Vital Signs Nursing Vital Signs: Initial Vital Signs Temperature 97.5 F 04/04/23 09:02 Pulse Rate 117 H 04/04/23 09:02 Respiratory Rate 29 H 04/04/23 09:02 Blood Pressure 135/68 04/04/23 09:02 O2 Sat by Pulse Oximetry 100 04/04/23 09:02 Pain Scale Pain Intensity 7 - Physical Exam General Appearance: no apparent distress, alert Eye Exam: PERRL/EOMI, pale conjunctivae Ears, Nose, Throat Exam: hearing grossly normal, normal ENT inspection Neck Exam: normal inspection, non-tender, supple, full range of motion Respiratory Exam: normal breath sounds, lungs clear Cardiovascular/Chest Exam: normal heart sounds, tachycardia Abdominal/Gastrointestinal Exam: soft, normal bowel sounds, No tenderness, No distention, No guarding Extremity Exam: non-tender, normal range of motion Neurologic Exam: alert, oriented x 3, cooperative, 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 tested Skin Exam: normal color SpO2 Interpretation: O2 applied SpO2: 100 O2 Delivery: Room Air - Course EKG Interpreted by Me: RATE (111), A-fib, NORMAL AXIS, prolonged QT interval (ST depression lateral leads) Ordered Tests: Active Orders 24 hr Category Date Time Status Flooring Installer STAT Care 04/04/23 09:27 Active EKG-ER Only STAT Care 04/04/23 09:26 Active Zheng [Catheter-Franklin Zheng] STAT Care 04/04/23 13:30 Active IV Insertion STAT Care 04/04/23 09:26 Active IV Insertion-2nd Peripheral STAT Care 04/04/23 11:30 Active Oxygen-ED Only Nasal Cannula 3 lpm Care 04/04/23 09:26 Active ABDOMEN AND PELVIS W/0 CONTRAS [CT] Stat Exams 04/04/23 10:50 Completed CHEST WITHOUT CONTRAST [CT] Stat Exams 04/04/23 10:50 Completed BLOOD CULTURE Stat Lab 04/04/23 10:10 Received CBC W DIFF Stat Lab 04/04/23 09:35 Results CMP Stat Lab 04/04/23 09:35 Completed CULTURE,URINE Stat Lab 04/04/23 13:31 Received Lactic Acid Stat Lab 04/04/23 10:39 Completed Lactic Acid Stat Lab 04/04/23 12:42 Completed MAGNESIUM Stat Lab 04/04/23 09:35 Completed Manual Differential NC Stat Lab 04/04/23 09:35 Results NT PRO BNPII Stat Lab 04/04/23 09:35 Completed Occult Blood-Fecal Screen (Diagnostic) [OB-FECAL SCREEN Lab 04/04/23 Ordered ] Stat PROCALCITONIN Stat Lab 04/04/23 09:35 Completed PROTIME WITH INR Stat Lab 04/04/23 10:04 Completed PTT Stat Lab 04/04/23 10:04 Completed Pathologist Review Stat Lab 04/04/23 09:35 Results TROPONIN Q4H Lab 04/04/23 09:35 Completed UA W/RFX UR CULTURE Stat Lab 04/04/23 13:31 Completed Transfer Order Routine Transfer 04/04/23 Ordered Medication Summary Generic Name Dose Route Start Last Admin Trade Name Tomasz PRN Reason Stop Dose Admin Sodium Chloride 1,000 mls @ 100 mls/hr 04/04/23 10:30 04/04/23 11:34 Sodium Chloride 0.9% 1000 Ml IV 05/04/23 10:29 100 mls/hr .Q10H GURMEET Infusion Discontinued Medications Generic Name Dose Route Start Last Admin Trade Name Tomasz PRN Reason Stop Dose Admin Albuterol/Ipratropium 3 ml 04/04/23 09:26 04/04/23 14:07 Ipratropium/Albuterol Sulfate 3 Ml Ampul.Neb IH 04/04/23 09:27 Not Given STAT ONE Albuterol/Ipratropium Confirm 04/04/23 10:24 Ipratropium/Albuterol Sulfate 3 Ml Ampul.Neb Administered 04/04/23 10:25 Dose 3 ml IH .STK-MED ONE Fentanyl Citrate 25 mcg 04/04/23 13:58 04/04/23 14:01 Fentanyl Citrate 100 Mcg/2 Ml* Vial IV 04/04/23 13:59 25 mcg STAT ONE Administration Fentanyl Citrate Confirm 04/04/23 14:00 Fentanyl Citrate 100 Mcg/2 Ml* Vial Administered 04/04/23 14:01 Dose 100 mcg .ROUTE .STK-MED ONE Fentanyl Citrate 50 mcg 04/04/23 14:54 04/04/23 15:01 Fentanyl Citrate 100 Mcg/2 Ml* Vial IV 04/04/23 14:55 50 mcg STAT ONE Administration Fentanyl Citrate Confirm 04/04/23 14:58 Fentanyl Citrate 100 Mcg/2 Ml* Vial Administered 04/04/23 14:59 Dose 100 mcg .ROUTE .STK-MED ONE Ondansetron HCl 4 mg 04/04/23 13:58 04/04/23 14:01 Ondansetron Hcl 4 Mg/2 Ml Vial IV 04/04/23 13:59 4 mg STAT ONE Administration Ondansetron HCl Confirm 04/04/23 13:59 Ondansetron Hcl 4 Mg/2 Ml Vial Administered 04/04/23 14:00 Dose 4 mg .ROUTE .STK-MED ONE Pantoprazole Sodium 40 mg 04/04/23 10:41 04/04/23 10:58 Pantoprazole 40 Mg Vial IV 04/04/23 10:42 Not Given STAT ONE Pantoprazole Sodium 80 mg 04/04/23 10:57 04/04/23 11:03 Pantoprazole 40 Mg Vial IV 04/04/23 10:58 80 mg STAT ONE Administration Pantoprazole Sodium Confirm 04/04/23 10:57 Pantoprazole 40 Mg Vial Administered 04/04/23 10:58 Dose 80 mg IV .STK-MED ONE Lab/Rad Data: Laboratory Result Diagrams 04/04/23 09:35 04/04/23 09:35 Laboratory Results 04/04/23 04/04/23 04/04/23 Range/Units Unknown 13:31 12:42 WBC (4.0-10.5) x10^3/uL RBC (4.1-5.4) x10^6/uL Hgb (12.0-16.0) g/dL Hct (35-47) % MCV (78-100) fL MCH (26-32) pg MCHC (32-36) g/dL RDW (11.5-14.0) % Plt Count (150-450) x10^3/uL MPV (7.5-11.0) fL Segmented Neutrophils (36.0-66.0) % Lymphocytes (Manual) (24-44) % Monocytes (Manual) (0.0-12.0) % Hypochromia Toxic Granulation Platelet Estimate (NORMAL) RBC Morphology Anisocytosis Macrocytosis Smear Path Review PT (9.4-12.5) SECONDS INR (0.8-3.0) APTT (25.1-36.5) SECONDS Sodium (137-145) mmol/L Potassium (3.5-5.1) mmol/L Chloride (98-107) mmol/L Carbon Dioxide (22-30) mmol/L Anion Gap (5-15) MEQ/L BUN (7-17) mg/dL Creatinine (0.52-1.04) mg/dL Estimated GFR ML/MIN Glucose (74-106) mg/dL Lactic Acid 1.1 (0.4-2.0) Calcium (8.4-10.2) mg/dL Magnesium (1.6-2.3) mg/dL Total Bilirubin (0.2-1.3) mg/dL AST (14-36) U/L ALT (0-35) U/L Alkaline Phosphatase (38-126) U/L Troponin I (0.000-0.034) ng/mL NT-Pro-B Natriuret Pep (<300) pg/mL Serum Total Protein (6.3-8.2) g/dL Albumin (3.5-5.0) g/dL Procalcitonin (0.030-0.080) ng/mL Urine Color Yellow (Yellow) Urine Appearance Clear (Clear) Urine pH 6.0 (4.6-8.0) Ur Specific [place] 1.015 (1.005-1.030) Urine Protein 30 (Negative) Urine Glucose (UA) Negative (Negative) mg/dL Urine Ketones Negative (Negative) Urine Blood Moderate A (Negative) Urine Nitrite Negative (Negative) Urine Bilirubin Negative (Negative) Urine Urobilinogen 0.2 (0.2) mg/dL Ur Leukocyte Esterase Negative (Negative) U Hyaline Cast (Auto) NONE SEEN (0-2) /LPF Urine Microscopic RBC 21-50 A (0-5) /HPF Urine Microscopic WBC 0-2 (0-5) /HPF Ur Epithelial Cells None Seen (None Seen) /HPF Urine Bacteria None Seen (None Seen) /HPF Urine Culture Reflexed ORDERED SEPARATELY (NO) Influenza Type A Ag NEGATIVE (NEGATIVE) Influenza Type B Ag NEGATIVE (NEGATIVE) RSV (PCR) NEGATIVE (NEGATIVE) SARS-CoV-2 (PCR) NEGATIVE (NEGATIVE) ABO Group Rh Factor Antibody Screen (NEGATIVE) Crossmatch (COMPATIBLE) 04/04/23 04/04/23 04/04/23 Range/Units 11:00 11:00 11:00 WBC (4.0-10.5) x10^3/uL RBC (4.1-5.4) x10^6/uL Hgb (12.0-16.0) g/dL Hct (35-47) % MCV (78-100) fL MCH (26-32) pg MCHC (32-36) g/dL RDW (11.5-14.0) % Plt Count (150-450) x10^3/uL MPV (7.5-11.0) fL Segmented Neutrophils (36.0-66.0) % Lymphocytes (Manual) (24-44) % Monocytes (Manual) (0.0-12.0) % Hypochromia Toxic Granulation Platelet Estimate (NORMAL) RBC Morphology Anisocytosis Macrocytosis Smear Path Review PT (9.4-12.5) SECONDS INR (0.8-3.0) APTT (25.1-36.5) SECONDS Sodium (137-145) mmol/L Potassium (3.5-5.1) mmol/L Chloride (98-107) mmol/L Carbon Dioxide (22-30) mmol/L Anion Gap (5-15) MEQ/L BUN (7-17) mg/dL Creatinine (0.52-1.04) mg/dL Estimated GFR ML/MIN Glucose (74-106) mg/dL Lactic Acid (0.4-2.0) Calcium (8.4-10.2) mg/dL Magnesium (1.6-2.3) mg/dL Total Bilirubin (0.2-1.3) mg/dL AST (14-36) U/L ALT (0-35) U/L Alkaline Phosphatase (38-126) U/L Troponin I (0.000-0.034) ng/mL NT-Pro-B Natriuret Pep (<300) pg/mL Serum Total Protein (6.3-8.2) g/dL Albumin (3.5-5.0) g/dL Procalcitonin (0.030-0.080) ng/mL Urine Color (Yellow) Urine Appearance (Clear) Urine pH (4.6-8.0) Ur Specific [place] (1.005-1.030) Urine Protein (Negative) Urine Glucose (UA) (Negative) mg/dL Urine Ketones (Negative) Urine Blood (Negative) Urine Nitrite (Negative) Urine Bilirubin (Negative) Urine Urobilinogen (0.2) mg/dL Ur Leukocyte Esterase (Negative) U Hyaline Cast (Auto) (0-2) /LPF Urine Microscopic RBC (0-5) /HPF Urine Microscopic WBC (0-5) /HPF Ur Epithelial Cells (None Seen) /HPF Urine Bacteria (None Seen) /HPF Urine Culture Reflexed (NO) Influenza Type A Ag (NEGATIVE) Influenza Type B Ag (NEGATIVE) RSV (PCR) (NEGATIVE) SARS-CoV-2 (PCR) (NEGATIVE) ABO Group Rh Factor Antibody Screen (NEGATIVE) Crossmatch COMPATIBLE COMPATIBLE COMPATIBLE (COMPATIBLE) 04/04/23 04/04/23 04/04/23 Range/Units 11:00 10:39 10:04 WBC (4.0-10.5) x10^3/uL RBC (4.1-5.4) x10^6/uL Hgb (12.0-16.0) g/dL Hct (35-47) % MCV (78-100) fL MCH (26-32) pg MCHC (32-36) g/dL RDW (11.5-14.0) % Plt Count (150-450) x10^3/uL MPV (7.5-11.0) fL Segmented Neutrophils (36.0-66.0) % Lymphocytes (Manual) (24-44) % Monocytes (Manual) (0.0-12.0) % Hypochromia Toxic Granulation Platelet Estimate (NORMAL) RBC Morphology Anisocytosis Macrocytosis Smear Path Review PT 15.3 H (9.4-12.5) SECONDS INR 1.44 (0.8-3.0) APTT 37.0 H (25.1-36.5) SECONDS Sodium (137-145) mmol/L Potassium (3.5-5.1) mmol/L Chloride (98-107) mmol/L Carbon Dioxide (22-30) mmol/L Anion Gap (5-15) MEQ/L BUN (7-17) mg/dL Creatinine (0.52-1.04) mg/dL Estimated GFR ML/MIN Glucose (74-106) mg/dL Lactic Acid 3.7 H (0.4-2.0) Calcium (8.4-10.2) mg/dL Magnesium (1.6-2.3) mg/dL Total Bilirubin (0.2-1.3) mg/dL AST (14-36) U/L ALT (0-35) U/L Alkaline Phosphatase (38-126) U/L Troponin I (0.000-0.034) ng/mL NT-Pro-B Natriuret Pep (<300) pg/mL Serum Total Protein (6.3-8.2) g/dL Albumin (3.5-5.0) g/dL Procalcitonin (0.030-0.080) ng/mL Urine Color (Yellow) Urine Appearance (Clear) Urine pH (4.6-8.0) Ur Specific [place] (1.005-1.030) Urine Protein (Negative) Urine Glucose (UA) (Negative) mg/dL Urine Ketones (Negative) Urine Blood (Negative) Urine Nitrite (Negative) Urine Bilirubin (Negative) Urine Urobilinogen (0.2) mg/dL Ur Leukocyte Esterase (Negative) U Hyaline Cast (Auto) (0-2) /LPF Urine Microscopic RBC (0-5) /HPF Urine Microscopic WBC (0-5) /HPF Ur Epithelial Cells (None Seen) /HPF Urine Bacteria (None Seen) /HPF Urine Culture Reflexed (NO) Influenza Type A Ag (NEGATIVE) Influenza Type B Ag (NEGATIVE) RSV (PCR) (NEGATIVE) SARS-CoV-2 (PCR) (NEGATIVE) ABO Group A Rh Factor POSITIVE Antibody Screen NEGATIVE (NEGATIVE) Crossmatch COMPATIBLE (COMPATIBLE) 04/04/23 04/04/23 04/04/23 Range/Units 09:35 09:35 09:35 WBC 14.9 H (4.0-10.5) x10^3/uL RBC 1.57 L (4.1-5.4) x10^6/uL Hgb 5.0 L* D (12.0-16.0) g/dL Hct 15.8 L (35-47) % MCV 100.6 H (78-100) fL MCH 31.8 (26-32) pg MCHC 31.6 L (32-36) g/dL RDW 13.4 (11.5-14.0) % Plt Count 92 L D (150-450) x10^3/uL MPV 11.1 H (7.5-11.0) fL Segmented Neutrophils 92 H (36.0-66.0) % Lymphocytes (Manual) 6 L (24-44) % Monocytes (Manual) 2 (0.0-12.0) % Hypochromia 2+ Toxic Granulation 1+ Platelet Estimate DECREASED (NORMAL) RBC Morphology ABNORMAL Anisocytosis 1+ Macrocytosis 1+ Smear Path Review Pending PT (9.4-12.5) SECONDS INR (0.8-3.0) APTT (25.1-36.5) SECONDS Sodium 137 (137-145) mmol/L Potassium 3.8 (3.5-5.1) mmol/L Chloride 103 (98-107) mmol/L Carbon Dioxide 21 L (22-30) mmol/L Anion Gap 17.0 H (5-15) MEQ/L BUN 23 H (7-17) mg/dL Creatinine 0.90 (0.52-1.04) mg/dL Estimated GFR 62.3 ML/MIN Glucose 177 H (74-106) mg/dL Lactic Acid (0.4-2.0) Calcium 8.4 (8.4-10.2) mg/dL Magnesium 1.6 (1.6-2.3) mg/dL Total Bilirubin 1.40 H (0.2-1.3) mg/dL AST 386 H (14-36) U/L ALT 281 H (0-35) U/L Alkaline Phosphatase 81 (38-126) U/L Troponin I 0.028 (0.000-0.034) ng/mL NT-Pro-B Natriuret Pep 3340 (<300) pg/mL Serum Total Protein 7.0 (6.3-8.2) g/dL Albumin 3.5 (3.5-5.0) g/dL Procalcitonin 0.390 H (0.030-0.080) ng/mL Urine Color (Yellow) Urine Appearance (Clear) Urine pH (4.6-8.0) Ur Specific [place] (1.005-1.030) Urine Protein (Negative) Urine Glucose (UA) (Negative) mg/dL Urine Ketones (Negative) Urine Blood (Negative) Urine Nitrite (Negative) Urine Bilirubin (Negative) Urine Urobilinogen (0.2) mg/dL Ur Leukocyte Esterase (Negative) U Hyaline Cast (Auto) (0-2) /LPF Urine Microscopic RBC (0-5) /HPF Urine Microscopic WBC (0-5) /HPF Ur Epithelial Cells (None Seen) /HPF Urine Bacteria (None Seen) /HPF Urine Culture Reflexed (NO) Influenza Type A Ag (NEGATIVE) Influenza Type B Ag (NEGATIVE) RSV (PCR) (NEGATIVE) SARS-CoV-2 (PCR) (NEGATIVE) ABO Group Rh Factor Antibody Screen (NEGATIVE) Crossmatch (COMPATIBLE) - Progress Progress: re-examined Air Movement: good Progress Note: 04/04/23 12:06 88 years old female with multiple medical problems including atrial fibrillation on Eliquis who was evaluated yesterday morning for generalized weakness, anterolateral chest wall pain and some upper abdominal discomfort with nausea and vomiting presents with worsening of generalized weakness and getting short of breath with couple of steps without any chest pain. Patient does report minimal nonproductive cough at times. She was tested negative for COVID-19 yesterday. She has nausea but no vomiting today. No diarrhea or dark stools reported. Patient looks pale with delayed cap refill but denies any bright red blood per rectum or dark stool but does report vomiting/spitting up dark frothy stuff yes terday. Denies pain anywhere. EKG is atrial fibrillation at a rate of 111 with normal axis no ST elevations. She is given gentle hydration, vitals remained stable and heart rate improved to low 100s. Patient has a white count of 14 with a drop of hemoglobin from 10 yesterday to 5.1 today. Discussed with patient about the need for blood transfusion, went over risk and benefits and she agreed to go with that. She started on type crossmatch 2 units blood. Troponins are negative. Patient has worsening AST and ALT researches with the liver functions with lactate of 3.7 which I believe is secondary to blood loss. She is given IV Protonix and will start on Protonix drip. Discussed with hospitalist Dr. Joel reviewed history, workup and agreed with admission. I have called Dr. Savage, reviewed history, workup, recommended looking for any big hematoma on CT chest abdomen pelvis and if positive patient needs to go to higher level of care otherwise patient would be admitted and here in consultation with hospitalist. I have discussed the results of workup and hospital/general surgery recommendations with patient and she agrees with staying in here. 04/04/23 15:[address] chest abdomen pelvis showed hepatic cyst possible hemorrhagic as the source of bleeding. I have discussed with Dr. Yue BARONE beck tender, reviewed history, workup, no ICU beds were available at the time and recommended to consult Natali BARONE. In the meanwhile patient/family decided not to be transferred anywhere but to stay here. She signed DNR paperwork after long discussion with family. She is not confused or altered at all. Patient and family also understand that if we are keeping patient in here there is not a whole lot we can do to treat her because of bleeding but more of a comfort care and agree with it. I have discussed with Dr. Sharp again and reviewed the family/patient wishes and he agrees with that we can continue to give her blood if she tolerates but otherwise it would be more of a comfort care. She is given symptomatic treatment for pain Which we will continue to do . [facility] is also consulted after discussion with the patient and family. She is being admitted here. Blood Culture(s) Obtained: Yes Antibiotics given: No Discussed with Dr.: Inocencia, Other (Dr.: Kevin) Will see patient in: hospital (full admit) Counseled pt/family regarding: lab results, diagnosis, rad results Medical Desision Making - Discussion of managment Care discussed with:: hospitalist Reviewed:: Test results Agreed on:: Treatment plan Will see patient: in hospital - Diagnostic Testing Diagnostic test were ordered, analyzed, and reviewed by me: Yes Radiological Interpretation: Reviewed by me, Teleradiologist Report - Risk of complications The pt has a high risk of morbidity or mortality based on: Drug therapy requiring intensive monitoring for toxicity, Decision regarding hospitilization or escalation of hosp level of care - Departure Departure Disposition: In-patient Admission Clinical Impression: Acute blood loss anemia (ABLA), Intrahepatic hemorrhage, Hospice care Condition: Critical Critical Care Time: Yes Critical Care Time(excluding separately billable procedures): Critical 75-104 mins Referrals: Rosanne RUSHING [Primary Care Provider] - Follow up/PCP as directed
--- NOTE | 2023-04-04 12:42 | XRAY ---
CLINICAL HISTORY:VOMITING COMPARISON:04/02/2023 TECHNIQUE:Contiguous axial CT images of the chest were acquired without administration of intravenous contrast. Coronal and sagittal reconstructions were also obtained. FINDINGS: Stable bilateral pulmonary upper lobar predominantly upper segments subpleural reticulo-fibrotic scarring with tiny nodular densities associated with bilateral upper and right middle lobes variable sized calcified nodules, the largest (right upper lobe) measures about 1.8 x 1.4 cm in diameter. Right hilar calcified lymph nodes are also noted. Bilateral lower lobes, lingula and middle lobes subpleural atelectatic plates and reticular densities. No obvious pulmonary masses or consolidations. Stable prominent para-tracheal, prevascular, anterior mediastinal and subcarinal lymph nodes, the largest (para-tracheal) measures about 1 cm along its short axial diameter. Minimal bilateral costal pleural thickening. Minimal right pleural effusion. Interval new finding. The heart size is within normal. A small hiatus hernia is again noted. Otherwise, there is no definite mass lesion in the chest wall. Left breast tiny calcific focus. Thoracolumbar spondylodegenerative changes. No osseous destruction. IMPRESSION: In comparison with the prior study dated 04/02/2023, no significant interval changes in the chest findings apart from new minimal right pleural effusion. However; the scanned upper abdomen redemonstrated multiple hepatic lesions, the largest is again seen in the right hepatic lobe showing more hyperdense contents in comparison to the previous study probably suggesting hemorrhage within, for correlation with CT abdomen and better assessment by dedicated triphasic CT study of the liver. Electronically Signed by: Lebron Medina MD. (04/04/2023 12:38:19 EST)
--- NOTE | 2023-04-04 13:12 | XRAY ---
CLINICAL HISTORY:VOMITING COMPARISON:Compared to the previous study dated 04/02/2023 for chest, abdomen and pelvis. TECHNIQUE:CT of the abdomen and pelvis was performed in axial plane with sagittal and coronal reconstructed images without intravenous contrast administration. FINDINGS: Redemonstration of the previously noted right middle lobe partially calcified nodules. Redemonstration of hepatomegaly, measuring 18.8 cm showing multiple hypodense lesions, largest of which is seen at the right lobe at segments 6 and 8 measuring 13 X 12.5 X 12.5 cm (AP X T X H) and showing areas of central necrosis within the mass lesion. No dilated intrahepatic biliary radicles. Unremarkable appearing gallbladder with no stones, wall thickening or pericholecystic inflammatory changes or fluid. Fatty replacement of the pancreas is noted. Unremarkable appearing spleen. The adrenal glands are normal. Normal sized both kidneys, shows 3 mm calculus in the lower pole of right kidney. Vascular calcifications seen in both kidneys. No hydronephrosis. Faint hypodense lesion at the midpole cortex of left kidney measuring about 18 x 21 mm( Series 2; Image#[id number]) Colonic diverticulosis without evidence of diverticulitis. Posterior internal fixation at lower lumbar vertebrae. The ureters are normal with no stones. Atherosclerotic calcifications of abdominal aorta and iliac vessels without evidence of aneurysm or dissection. Small hiatus hernia. The stomach appears unremarkable. Unremarkable appearing duodenum. Small Bowel is non-distended with no abnormality. The appendix could not be visualized. The uterus is not visualized, likely surgically removed. No adnexal mass. No free air and no ascites. No free intraperitoneal air is seen. The bladder is unremarkable with no stones. Multilevel spondylodegenerative changes in the visualized spine. IMPRESSION: 1. Compared to the previous study dated 04/02/2023. 2. An overall stationary course of the disease process as follows: 3. Redemonstration of enlarged liver with hypodense mass lesions, the largest of which measures 13 X 12.5 X 12.5 cm and showing areas of central necrosis within it, would recommend Triphasic CT abdomen for further evaluation and better characterization of the mass lesion. 4. Non-obstructing right lower pole renal calculus. 5. Faint hypodense lesion at the midpole cortex of left kidney measuring about 18 x 21 mm suggesting left renal cyst. 6. Stable Right lung calcified nodules when compared to previous study. 7. Rest of the findings show no time interval abnormality. Electronically Signed by: Lebron Medina MD. (04/04/2023 13:08:01 EST)
[2023-04-04] MEDS ORDERED: SUBLIMAZE 100 MCG/2 ML IV ONE ×2 (13:58→14:54)
[2023-04-04] MEDS ORDERED: Zofran 4 MG/2 ML VIAL IV ONE (13:58)
[2023-04-04] MEDS ORDERED: Zofran 4 MG/2 ML VIAL ONE (13:59)
[2023-04-04] MEDS ORDERED: SUBLIMAZE 100 MCG/2 ML ONE ×2 (14:00→14:58)
[2023-04-04 14:05] LABS: Appearance Clear (Clear); Bacteria None Seen /HPF (None Seen); Bilirubin Negative (Negative); Blood Moderate (Negative); Epithelial Cells None Seen /HPF (None Seen); Glucose, Urine Negative (Negative); Hyaline Casts NONE SEEN /LPF (0-2); Ketones Negative (Negative); Leukocyte Esterase Negative (Negative); Nitrite Negative (Negative); Protein,Urine Dip 30 (Negative); RBC 21-50 /HPF (0-5); Specific Gravity 1.015 (1.005-1.030); Urobilinogen 0.2 mg/dL (0.2); WBC 0-2 /HPF (0-5)
[2023-04-04 14:06] LABS: ADD URINE CULTURE? ORDERED SEPARATELY (NO)
[2023-04-04] MEDS ORDERED: MORPHINE SULFATE 4 MG INJ IV ONE (15:48)
[2023-04-04] MEDS ORDERED: MORPHINE SULFATE 4 MG INJ ONE (15:50)
[2023-04-04] MEDS ORDERED: TYLENOL EXTRA STRENGTH 500 MG PO STA (15:51)
[2023-04-04] MEDS ORDERED: TYLENOL EXTRA STRENGTH 500 MG ONE (15:52)
[2023-04-04 16:46] VITALS: BP 135/60
--- NOTE | 2023-04-04 18:22 | PCM.HP ---
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 She evaluated yesterday morning for generalized weakness, anterolateral chest wall pain and some upper abdominal discomfort with nausea and vomiting. She presented to ER with worsening of generalized weakness and getting short of breath with couple of steps without any chest pain. Patient does report minimal nonproductive cough at times. She was tested negative for COVID-19 yesterday and was negative. She has nausea but no vomiting today. No diarrhea or dark stools reported. Per daughter her bile when vomiting was dark. She is c/o of RUQ pain that is dull, acky, and sharp that is increased with walking. CT of abd. showed redemonstration of enlarged liver with hypodense mass lesions, the largest of which measures 13 X 12.5 X 12.5 cm and showing areas of central necrosis. Her hgb was 5 in the ER. They attempted to gave 2 units blood and she had a transfusion reaction per nursing charting with an elevated temp on the 2nd unit. Therefore blood was slowed down. A temp sensing purcell was placed during transfusion and and 1st temperature was taken orally. Blood may need to go at a slower rate if given again. Will recheck CBC in AM. [facility] called per pt and family request as there are no beds at to tx. ER physician spoke with Dr. Calvin and he recommended tx to a higher level of care. Pt signed DNR paperwork. CT chest abdomen pelvis showed hepatic cyst possible hemorrhagic as the source of bleeding. - Review of Systems Constitutional: No Fever, No Chills Eyes: No Symptoms Ears, Nose, & Throat: No Symptoms Respiratory: No Cough, No Short Of Breath Cardiac: No Chest Pain, No Edema, No Syncope Abdominal/Gastrointestinal: Abdominal Pain, Nausea, Vomiting, No Diarrhea Genitourinary Symptoms: No Dysuria Musculoskeletal: No Back Pain, No Neck Pain Skin: No Rash Neurological: No Dizziness, No Focal Weakness, No Sensory Changes Psychological: No Symptoms Endocrine: No Symptoms Hematologic/Lymphatic: No Symptoms Immunological/Allergic: No Symptoms Medications & Allergies Home Medications: Home Medication List Carvedilol [Coreg ] 1 tab PO BID 08/21/21 [History Confirmed 04/04/23] Famotidine 40 mg PO HS 08/21/21 [History Confirmed 04/04/23] Levothyroxine Sodium [Levothyroxine] 25 mcg PO HS 08/21/21 [History Confirmed 04/04/23] Tramadol HCl 50 mg [Ultram 50 mg] 1 tab PO TID PRN 08/21/21 [History Confirmed 04/04/23] Apixaban [Eliquis 5 mg Tablet] 5 mg PO BID 02/23/22 [History Confirmed 1 06/05/22] Rosuvastatin Calcium 20 mg PO HS 02/23/22 [History Confirmed 04/04/23] Benzonatate 200 mg PO TID 04/04/23 [History Confirmed 04/04/23] Topiramate 50 mg PO HS 04/04/23 [History Confirmed 04/04/23] Allergies/Adverse Reactions: Allergies Allergy/AdvReac Type Severity Reaction Status Date / Time methotrexate AdvReac Severe Lightheaded Verified 04/04/23 09:18 ness - Past Medical History Past Medical History: Yes Neurological History: Migraines, Stroke ENT History: No Pertinent History Cardiac History: Arrhythmia Respiratory History: Sleep Apnea Endocrine Medical History: No Pertinent History Musculoskelatal History: Arthritis GI Medical History: No Pertinent History History: No Pertinent History Pyscho-Social History: No Pertinent History Reproductive Disorders: No Pertinent History Comment: DEPRESSION, 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 SX HX LUMBAR LAMINECTOMY AND FUSION 2018, RIGHT CAROTID ENDARTERECTOMY - Female History Are you now?: No - Past Surgical History Past Surgical History: Yes Neuro Surgical History: No Pertinent History Cardiac History: No Pertinent History Respiratory Surgery: No Pertinent History GI Surgical History: No Pertinent History Genitourinary Surgical Hx: No Pertinent History Musculskeletal Surgical Hx: No Pertinent History Female Surgical History: Hysterectomy Other Surgical History: neck surgery - Social History Smoking Status: Never smoker Exposure to second hand smoke: No Alcohol: None Drug Use: none - Physical Exam Vital Signs: Vital Signs - 24 hr Temp Pulse Resp BP BP Pulse Ox 12/10/23 17:03 99 04/04/23 16:19 97.7 F 101 H 18 135/62 99 04/04/23 15:46 100 04/04/23 15:30 100.8 F 94 H 24 148/102 100 04/04/23 15:01 100.8 F 100 H 18 157/69 100 04/04/23 14:30 100.4 F 98 H 30 H 145/91 100 04/04/23 14:00 100.4 F 100 H 25 H 156/109 100 04/04/23 10:35 108 H 25 H 146/61 100 04/04/23 10:34 101 H 30 H 146/61 100 04/04/23 09:02 97.5 F 117 H 31 H 135/68 109 H General Appearance: no apparent distress, alert Neurologic Exam: alert, oriented x 3, cooperative, normal mood/affect, nml cerebellar function, nml station & gait, sensation nml, No motor deficits Eye Exam: PERRL/EOMI, eyes nml inspection Ears, Nose, Throat Exam: normal ENT inspection, TMs normal, pharynx normal, moist mucous membranes Neck Exam: normal inspection, non-tender, supple, full range of motion Respiratory Exam: normal breath sounds, lungs clear, No respiratory distress Cardiovascular Exam: regular rate/rhythm, normal heart sounds, normal peripheral pulses Gastrointestinal/Abdomen Exam: soft, normal bowel sounds, No tenderness (RUQ with palpation), No mass Back Exam: normal inspection, normal range of motion, No CVA tenderness, No vertebral tenderness Extremity Exam: normal inspection, normal range of motion, pelvis stable Skin Exam: normal color, warm, dry, pale, No rash Wound Assessment: Skin/Wound Assessment Wound/Incision Assessment Start: 04/04/23 16:46 Text: Status: Active Freq: Q6H Protocol: Document 04/04/23 16:46 MK (Rec: 04/04/23 17:11 MK [id number]) Wound Photo Photo Taken No Lymphatic Exam: No adenopathy Results - Labs Lab/Micro Results: Lab Results-Last 24 Hours 04/04/23 04/04/23 04/04/23 Range/Units 09:35 09:35 09:35 WBC 14.9 H (4.0-10.5) x10^3/uL RBC 1.57 L (4.1-5.4) x10^6/uL Hgb 5.0 L* D (12.0-16.0) g/dL Hct 15.8 L (35-47) % MCV 100.6 H (78-100) fL MCH 31.8 (26-32) pg MCHC 31.6 L (32-36) g/dL RDW 13.4 (11.5-14.0) % Plt Count 92 L D (150-450) x10^3/uL MPV 11.1 H (7.5-11.0) fL Segmented Neutrophils 92 H (36.0-66.0) % Lymphocytes (Manual) 6 L (24-44) % Monocytes (Manual) 2 (0.0-12.0) % Hypochromia 2+ Toxic Granulation 1+ Platelet Estimate DECREASED (NORMAL) RBC Morphology ABNORMAL Anisocytosis 1+ Macrocytosis 1+ Smear Path Review Pending PT (9.4-12.5) SECONDS INR (0.8-3.0) APTT (25.1-36.5) SECONDS Sodium 137 (137-145) mmol/L Potassium 3.8 (3.5-5.1) mmol/L Chloride 103 (98-107) mmol/L Carbon Dioxide 21 L (22-30) mmol/L Anion Gap 17.0 H (5-15) MEQ/L BUN 23 H (7-17) mg/dL Creatinine 0.90 (0.52-1.04) mg/dL Estimated GFR 62.3 ML/MIN Glucose 177 H (74-106) mg/dL Lactic Acid (0.4-2.0) Calcium 8.4 (8.4-10.2) mg/dL Magnesium 1.6 (1.6-2.3) mg/dL Total Bilirubin 1.40 H (0.2-1.3) mg/dL AST 386 H (14-36) U/L ALT 281 H (0-35) U/L Alkaline Phosphatase 81 (38-126) U/L Troponin I 0.028 (0.000-0.034) ng/mL NT-Pro-B Natriuret Pep 3340 (<300) pg/mL Serum Total Protein 7.0 (6.3-8.2) g/dL Albumin 3.5 (3.5-5.0) g/dL Procalcitonin 0.390 H (0.030-0.080) ng/mL Urine Color (Yellow) Urine Appearance (Clear) Urine pH (4.6-8.0) Ur Specific [place] (1.005-1.030) Urine Protein (Negative) Urine Glucose (UA) (Negative) mg/dL Urine Ketones (Negative) Urine Blood (Negative) Urine Nitrite (Negative) Urine Bilirubin (Negative) Urine Urobilinogen (0.2) mg/dL Ur Leukocyte Esterase (Negative) U Hyaline Cast (Auto) (0-2) /LPF Urine Microscopic RBC (0-5) /HPF Urine Microscopic WBC (0-5) /HPF Ur Epithelial Cells (None Seen) /HPF Urine Bacteria (None Seen) /HPF Urine Culture Reflexed (NO) Influenza Type A Ag (NEGATIVE) Influenza Type B Ag (NEGATIVE) RSV (PCR) (NEGATIVE) SARS-CoV-2 (PCR) (NEGATIVE) ABO Group Rh Factor Antibody Screen (NEGATIVE) Crossmatch (COMPATIBLE) 04/04/23 04/04/23 04/04/23 Range/Units 10:04 10:39 11:00 WBC (4.0-10.5) x10^3/uL RBC (4.1-5.4) x10^6/uL Hgb (12.0-16.0) g/dL Hct (35-47) % MCV (78-100) fL MCH (26-32) pg MCHC (32-36) g/dL RDW (11.5-14.0) % Plt Count (150-450) x10^3/uL MPV (7.5-11.0) fL Segmented Neutrophils (36.0-66.0) % Lymphocytes (Manual) (24-44) % Monocytes (Manual) (0.0-12.0) % Hypochromia Toxic Granulation Platelet Estimate (NORMAL) RBC Morphology Anisocytosis Macrocytosis Smear Path Review PT 15.3 H (9.4-12.5) SECONDS INR 1.44 (0.8-3.0) APTT 37.0 H (25.1-36.5) SECONDS Sodium (137-145) mmol/L Potassium (3.5-5.1) mmol/L Chloride (98-107) mmol/L Carbon Dioxide (22-30) mmol/L Anion Gap (5-15) MEQ/L BUN (7-17) mg/dL Creatinine (0.52-1.04) mg/dL Estimated GFR ML/MIN Glucose (74-106) mg/dL Lactic Acid 3.7 H (0.4-2.0) Calcium (8.4-10.2) mg/dL Magnesium (1.6-2.3) mg/dL Total Bilirubin (0.2-1.3) mg/dL AST (14-36) U/L ALT (0-35) U/L Alkaline Phosphatase (38-126) U/L Troponin I (0.000-0.034) ng/mL NT-Pro-B Natriuret Pep (<300) pg/mL Serum Total Protein (6.3-8.2) g/dL Albumin (3.5-5.0) g/dL Procalcitonin (0.030-0.080) ng/mL Urine Color (Yellow) Urine Appearance (Clear) Urine pH (4.6-8.0) Ur Specific [place] (1.005-1.030) Urine Protein (Negative) Urine Glucose (UA) (Negative) mg/dL Urine Ketones (Negative) Urine Blood (Negative) Urine Nitrite (Negative) Urine Bilirubin (Negative) Urine Urobilinogen (0.2) mg/dL Ur Leukocyte Esterase (Negative) U Hyaline Cast (Auto) (0-2) /LPF Urine Microscopic RBC (0-5) /HPF Urine Microscopic WBC (0-5) /HPF Ur Epithelial Cells (None Seen) /HPF Urine Bacteria (None Seen) /HPF Urine Culture Reflexed (NO) Influenza Type A Ag (NEGATIVE) Influenza Type B Ag (NEGATIVE) RSV (PCR) (NEGATIVE) SARS-CoV-2 (PCR) (NEGATIVE) ABO Group A Rh Factor POSITIVE Antibody Screen NEGATIVE (NEGATIVE) Crossmatch COMPATIBLE (COMPATIBLE) 04/04/23 04/04/23 04/04/23 Range/Units 11:00 11:00 11:00 WBC (4.0-10.5) x10^3/uL RBC (4.1-5.4) x10^6/uL Hgb (12.0-16.0) g/dL Hct (35-47) % MCV (78-100) fL MCH (26-32) pg MCHC (32-36) g/dL RDW (11.5-14.0) % Plt Count (150-450) x10^3/uL MPV (7.5-11.0) fL Segmented Neutrophils (36.0-66.0) % Lymphocytes (Manual) (24-44) % Monocytes (Manual) (0.0-12.0) % Hypochromia Toxic Granulation Platelet Estimate (NORMAL) RBC Morphology Anisocytosis Macrocytosis Smear Path Review PT (9.4-12.5) SECONDS INR (0.8-3.0) APTT (25.1-36.5) SECONDS Sodium (137-145) mmol/L Potassium (3.5-5.1) mmol/L Chloride (98-107) mmol/L Carbon Dioxide (22-30) mmol/L Anion Gap (5-15) MEQ/L BUN (7-17) mg/dL Creatinine (0.52-1.04) mg/dL Estimated GFR ML/MIN Glucose (74-106) mg/dL Lactic Acid (0.4-2.0) Calcium (8.4-10.2) mg/dL Magnesium (1.6-2.3) mg/dL Total Bilirubin (0.2-1.3) mg/dL AST (14-36) U/L ALT (0-35) U/L Alkaline Phosphatase (38-126) U/L Troponin I (0.000-0.034) ng/mL NT-Pro-B Natriuret Pep (<300) pg/mL Serum Total Protein (6.3-8.2) g/dL Albumin (3.5-5.0) g/dL Procalcitonin (0.030-0.080) ng/mL Urine Color (Yellow) Urine Appearance (Clear) Urine pH (4.6-8.0) Ur Specific [place] (1.005-1.030) Urine Protein (Negative) Urine Glucose (UA) (Negative) mg/dL Urine Ketones (Negative) Urine Blood (Negative) Urine Nitrite (Negative) Urine Bilirubin (Negative) Urine Urobilinogen (0.2) mg/dL Ur Leukocyte Esterase (Negative) U Hyaline Cast (Auto) (0-2) /LPF Urine Microscopic RBC (0-5) /HPF Urine Microscopic WBC (0-5) /HPF Ur Epithelial Cells (None Seen) /HPF Urine Bacteria (None Seen) /HPF Urine Culture Reflexed (NO) Influenza Type A Ag (NEGATIVE) Influenza Type B Ag (NEGATIVE) RSV (PCR) (NEGATIVE) SARS-CoV-2 (PCR) (NEGATIVE) ABO Group Rh Factor Antibody Screen (NEGATIVE) Crossmatch COMPATIBLE COMPATIBLE COMPATIBLE (COMPATIBLE) 04/04/23 04/04/23 04/04/23 Range/Units 12:42 13:31 Unknown WBC (4.0-10.5) x10^3/uL RBC (4.1-5.4) x10^6/uL Hgb (12.0-16.0) g/dL Hct (35-47) % MCV (78-100) fL MCH (26-32) pg MCHC (32-36) g/dL RDW (11.5-14.0) % Plt Count (150-450) x10^3/uL MPV (7.5-11.0) fL Segmented Neutrophils (36.0-66.0) % Lymphocytes (Manual) (24-44) % Monocytes (Manual) (0.0-12.0) % Hypochromia Toxic Granulation Platelet Estimate (NORMAL) RBC Morphology Anisocytosis Macrocytosis Smear Path Review PT (9.4-12.5) SECONDS INR (0.8-3.0) APTT (25.1-36.5) SECONDS Sodium (137-145) mmol/L Potassium (3.5-5.1) mmol/L Chloride (98-107) mmol/L Carbon Dioxide (22-30) mmol/L Anion Gap (5-15) MEQ/L BUN (7-17) mg/dL Creatinine (0.52-1.04) mg/dL Estimated GFR ML/MIN Glucose (74-106) mg/dL Lactic Acid 1.1 (0.4-2.0) Calcium (8.4-10.2) mg/dL Magnesium (1.6-2.3) mg/dL Total Bilirubin (0.2-1.3) mg/dL AST (14-36) U/L ALT (0-35) U/L Alkaline Phosphatase (38-126) U/L Troponin I (0.000-0.034) ng/mL NT-Pro-B Natriuret Pep (<300) pg/mL Serum Total Protein (6.3-8.2) g/dL Albumin (3.5-5.0) g/dL Procalcitonin (0.030-0.080) ng/mL Urine Color Yellow (Yellow) Urine Appearance Clear (Clear) Urine pH 6.0 (4.6-8.0) Ur Specific [place] 1.015 (1.005-1.030) Urine Protein 30 (Negative) Urine Glucose (UA) Negative (Negative) mg/dL Urine Ketones Negative (Negative) Urine Blood Moderate A (Negative) Urine Nitrite Negative (Negative) Urine Bilirubin Negative (Negative) Urine Urobilinogen 0.2 (0.2) mg/dL Ur Leukocyte Esterase Negative (Negative) U Hyaline Cast (Auto) NONE SEEN (0-2) /LPF Urine Microscopic RBC 21-50 A (0-5) /HPF Urine Microscopic WBC 0-2 (0-5) /HPF Ur Epithelial Cells None Seen (None Seen) /HPF Urine Bacteria None Seen (None Seen) /HPF Urine Culture Reflexed ORDERED SEPARATELY (NO) Influenza Type A Ag NEGATIVE (NEGATIVE) Influenza Type B Ag NEGATIVE (NEGATIVE) RSV (PCR) NEGATIVE (NEGATIVE) SARS-CoV-2 (PCR) NEGATIVE (NEGATIVE) ABO Group Rh Factor Antibody Screen (NEGATIVE) Crossmatch (COMPATIBLE) - Radiology Impressions Radiology Exams & Impressions: Radiology Procedures Category Date Time Status ABDOMEN AND PELVIS W/0 CONTRAS [CT] Stat Exams 04/04/23 10:50 Completed CHEST WITHOUT CONTRAST [CT] Stat Exams 04/04/23 10:50 Completed - Other Procedures and Tests Respiratory Therapy 04/04/23 16:26 Oxygen Nasal Cannula 2 lpm Assessment/Plan (1) Intrahepatic hemorrhage Current Visit: Yes Status: Acute Assessment & Plan: - Chest CT 04/04/23 IMPRESSION: In comparison with the prior study dated 04/02/2023, no significant interval changes in the chest findings apart from new minimal right pleural effusion. However; the scanned upper abdomen redemonstrated multiple hepatic lesions, the largest is again seen in the right hepatic lobe showing more hyperdense contents in comparison to the previous study probably suggesting hemorrhage within, for correlation with CT abdomen and better assessment by dedicated triphasic CT study of the liver. - CT Abd/pelvis 02/15 IMPRESSION: 1. Compared to the previous study dated 04/02/2023. 2. An overall stationary course of the disease process as follows: 3. Redemonstration of enlarged liver with hypodense mass lesions, the largest of which measures 13 X 12.5 X 12.5 cm and showing areas of central necrosis within it, would recommend Triphasic CT abdomen for further evaluation and better characterization of the mass lesion. 4. Non-obstructing right lower pole renal calculus. 5. Faint hypodense lesion at the midpole cortex of left kidney measuring about 18 x 21 mm suggesting left renal cyst. 6. Stable Right lung calcified nodules when compared to previous study. 7. Rest of the findings show no time interval abnormality. - 2 units PRBC gave in ER - recheck Hgb in AM - Hospice per pt and family request Code(s): K76.89 - OTHER SPECIFIED DISEASES OF LIVER (2) Acute blood loss anemia (ABLA) Current Visit: Yes Status: Acute Assessment & Plan: - Hgb 5 in ER - 2 units of blood gave - 2nd unit had to be slowed down due to reaction - reaction was elevated temp - 4LNC Code(s): D62 - ACUTE POSTHEMORRHAGIC ANEMIA (3) Hospice care Current Visit: Yes Status: Acute Assessment & Plan: -[facility] coming tonight - they will take care of meds
[2023-04-04] MEDS ORDERED: Ativan 2 MG/1 ML VIAL IV PRN (20:35)
[2023-04-04 22:57] VITALS: PULSE 81
[2023-04-05] MEDS: MORPHINE SULFATE 4 MG INJ IV PRN ×3 (03:36→16:09)
[2023-04-05 04:55] VITALS: RESP 16
--- NOTE | 2023-04-05 05:01 | PCM.NOTE ---
Date and Time: 04/05/23 0459 Subjective Assessment: Ms. Chávez is an 88 year old female with pmhx of stroke, AFIB (on eliquis), CAD, HLD, HTN, OH, hypothyroidism DDD, and OA evaluated by ED 04/03/23 for c/o anterolateral chest wall pain and some upper abdominal discomfort with nausea and vomiting, and who presented to ED 04/04/23 with c/o worsening generalized weakness and shortness of breath. Lab findings were remarkable for a significant drop in hemoglobin from 10 down to [address]. [address] of the c/a/p demonstrates a hepatic cyst as the possible source of bleeding. Patient was advised to transfer to higher level of care but declines. She has signed DNR paperwork and is requesting comfort care. [facility] has been consulted. 04/05/23: OBJECTIVE DATA Vital Signs: Vital Signs - 24 hr Temp Pulse Resp BP BP Pulse Ox 04/05/23 04:00 16 04/04/23 22:57 81 99 04/04/23 20:00 91 H 18 99 04/04/23 17:03 99 04/04/23 16:19 97.7 F 101 H 18 135/62 99 04/04/23 15:46 100 04/04/23 15:30 100.8 F 94 H 24 148/102 100 04/04/23 15:01 100.8 F 100 H 18 157/69 100 04/04/23 14:30 100.4 F 98 H 30 H 145/91 100 04/04/23 14:00 100.4 F 100 H 25 H 156/109 100 04/04/23 10:35 108 H 25 H 146/61 100 04/04/23 10:34 101 H 30 H 146/61 100 04/04/23 09:02 97.5 F 117 H 31 H 135/68 109 H Pain Assessment - Last Documented Pain Intensity 0 Intake and Output: Intake & Output 04/02/23 04/03/23 04/04/23 04/05/23 11:59 11:59 11:59 11:59 Intake Total 0 Balance 0 Weight 86.636 kg 94.3 kg Lab Results: Lab Results-Last 24 Hours 04/04/23 04/04/23 04/04/23 Range/Units 09:35 09:35 09:35 WBC 14.9 H (4.0-10.5) x10^3/uL RBC 1.57 L (4.1-5.4) x10^6/uL Hgb 5.0 L* D (12.0-16.0) g/dL Hct 15.8 L (35-47) % MCV 100.6 H (78-100) fL MCH 31.8 (26-32) pg MCHC 31.6 L (32-36) g/dL RDW 13.4 (11.5-14.0) % Plt Count 92 L D (150-450) x10^3/uL MPV 11.1 H (7.5-11.0) fL Segmented Neutrophils 92 H (36.0-66.0) % Lymphocytes (Manual) 6 L (24-44) % Monocytes (Manual) 2 (0.0-12.0) % Hypochromia 2+ Toxic Granulation 1+ Platelet Estimate DECREASED (NORMAL) RBC Morphology ABNORMAL Anisocytosis 1+ Macrocytosis 1+ Smear Path Review Pending PT (9.4-12.5) SECONDS INR (0.8-3.0) APTT (25.1-36.5) SECONDS Sodium 137 (137-145) mmol/L Potassium 3.8 (3.5-5.1) mmol/L Chloride 103 (98-107) mmol/L Carbon Dioxide 21 L (22-30) mmol/L Anion Gap 17.0 H (5-15) MEQ/L BUN 23 H (7-17) mg/dL Creatinine 0.90 (0.52-1.04) mg/dL Estimated GFR 62.3 ML/MIN Glucose 177 H (74-106) mg/dL Lactic Acid (0.4-2.0) Calcium 8.4 (8.4-10.2) mg/dL Magnesium 1.6 (1.6-2.3) mg/dL Total Bilirubin 1.40 H (0.2-1.3) mg/dL AST 386 H (14-36) U/L ALT 281 H (0-35) U/L Alkaline Phosphatase 81 (38-126) U/L Troponin I 0.028 (0.000-0.034) ng/mL NT-Pro-B Natriuret Pep 3340 (<300) pg/mL Serum Total Protein 7.0 (6.3-8.2) g/dL Albumin 3.5 (3.5-5.0) g/dL Procalcitonin 0.390 H (0.030-0.080) ng/mL Urine Color (Yellow) Urine Appearance (Clear) Urine pH (4.6-8.0) Ur Specific [place] (1.005-1.030) Urine Protein (Negative) Urine Glucose (UA) (Negative) mg/dL Urine Ketones (Negative) Urine Blood (Negative) Urine Nitrite (Negative) Urine Bilirubin (Negative) Urine Urobilinogen (0.2) mg/dL Ur Leukocyte Esterase (Negative) U Hyaline Cast (Auto) (0-2) /LPF Urine Microscopic RBC (0-5) /HPF Urine Microscopic WBC (0-5) /HPF Ur Epithelial Cells (None Seen) /HPF Urine Bacteria (None Seen) /HPF Urine Culture Reflexed (NO) Influenza Type A Ag (NEGATIVE) Influenza Type B Ag (NEGATIVE) RSV (PCR) (NEGATIVE) SARS-CoV-2 (PCR) (NEGATIVE) ABO Group Rh Factor Antibody Screen (NEGATIVE) Crossmatch (COMPATIBLE) 04/04/23 04/04/23 04/04/23 Range/Units 10:04 10:39 11:00 WBC (4.0-10.5) x10^3/uL RBC (4.1-5.4) x10^6/uL Hgb (12.0-16.0) g/dL Hct (35-47) % MCV (78-100) fL MCH (26-32) pg MCHC (32-36) g/dL RDW (11.5-14.0) % Plt Count (150-450) x10^3/uL MPV (7.5-11.0) fL Segmented Neutrophils (36.0-66.0) % Lymphocytes (Manual) (24-44) % Monocytes (Manual) (0.0-12.0) % Hypochromia Toxic Granulation Platelet Estimate (NORMAL) RBC Morphology Anisocytosis Macrocytosis Smear Path Review PT 15.3 H (9.4-12.5) SECONDS INR 1.44 (0.8-3.0) APTT 37.0 H (25.1-36.5) SECONDS Sodium (137-145) mmol/L Potassium (3.5-5.1) mmol/L Chloride (98-107) mmol/L Carbon Dioxide (22-30) mmol/L Anion Gap (5-15) MEQ/L BUN (7-17) mg/dL Creatinine (0.52-1.04) mg/dL Estimated GFR ML/MIN Glucose (74-106) mg/dL Lactic Acid 3.7 H (0.4-2.0) Calcium (8.4-10.2) mg/dL Magnesium (1.6-2.3) mg/dL Total Bilirubin (0.2-1.3) mg/dL AST (14-36) U/L ALT (0-35) U/L Alkaline Phosphatase (38-126) U/L Troponin I (0.000-0.034) ng/mL NT-Pro-B Natriuret Pep (<300) pg/mL Serum Total Protein (6.3-8.2) g/dL Albumin (3.5-5.0) g/dL Procalcitonin (0.030-0.080) ng/mL Urine Color (Yellow) Urine Appearance (Clear) Urine pH (4.6-8.0) Ur Specific [place] (1.005-1.030) Urine Protein (Negative) Urine Glucose (UA) (Negative) mg/dL Urine Ketones (Negative) Urine Blood (Negative) Urine Nitrite (Negative) Urine Bilirubin (Negative) Urine Urobilinogen (0.2) mg/dL Ur Leukocyte Esterase (Negative) U Hyaline Cast (Auto) (0-2) /LPF Urine Microscopic RBC (0-5) /HPF Urine Microscopic WBC (0-5) /HPF Ur Epithelial Cells (None Seen) /HPF Urine Bacteria (None Seen) /HPF Urine Culture Reflexed (NO) Influenza Type A Ag (NEGATIVE) Influenza Type B Ag (NEGATIVE) RSV (PCR) (NEGATIVE) SARS-CoV-2 (PCR) (NEGATIVE) ABO Group A Rh Factor POSITIVE Antibody Screen NEGATIVE (NEGATIVE) Crossmatch COMPATIBLE (COMPATIBLE) 04/04/23 04/04/23 04/04/23 Range/Units 11:00 11:00 11:00 WBC (4.0-10.5) x10^3/uL RBC (4.1-5.4) x10^6/uL Hgb (12.0-16.0) g/dL Hct (35-47) % MCV (78-100) fL MCH (26-32) pg MCHC (32-36) g/dL RDW (11.5-14.0) % Plt Count (150-450) x10^3/uL MPV (7.5-11.0) fL Segmented Neutrophils (36.0-66.0) % Lymphocytes (Manual) (24-44) % Monocytes (Manual) (0.0-12.0) % Hypochromia Toxic Granulation Platelet Estimate (NORMAL) RBC Morphology Anisocytosis Macrocytosis Smear Path Review PT (9.4-12.5) SECONDS INR (0.8-3.0) APTT (25.1-36.5) SECONDS Sodium (137-145) mmol/L Potassium (3.5-5.1) mmol/L Chloride (98-107) mmol/L Carbon Dioxide (22-30) mmol/L Anion Gap (5-15) MEQ/L BUN (7-17) mg/dL Creatinine (0.52-1.04) mg/dL Estimated GFR ML/MIN Glucose (74-106) mg/dL Lactic Acid (0.4-2.0) Calcium (8.4-10.2) mg/dL Magnesium (1.6-2.3) mg/dL Total Bilirubin (0.2-1.3) mg/dL AST (14-36) U/L ALT (0-35) U/L Alkaline Phosphatase (38-126) U/L Troponin I (0.000-0.034) ng/mL NT-Pro-B Natriuret Pep (<300) pg/mL Serum Total Protein (6.3-8.2) g/dL Albumin (3.5-5.0) g/dL Procalcitonin (0.030-0.080) ng/mL Urine Color (Yellow) Urine Appearance (Clear) Urine pH (4.6-8.0) Ur Specific [place] (1.005-1.030) Urine Protein (Negative) Urine Glucose (UA) (Negative) mg/dL Urine Ketones (Negative) Urine Blood (Negative) Urine Nitrite (Negative) Urine Bilirubin (Negative) Urine Urobilinogen (0.2) mg/dL Ur Leukocyte Esterase (Negative) U Hyaline Cast (Auto) (0-2) /LPF Urine Microscopic RBC (0-5) /HPF Urine Microscopic WBC (0-5) /HPF Ur Epithelial Cells (None Seen) /HPF Urine Bacteria (None Seen) /HPF Urine Culture Reflexed (NO) Influenza Type A Ag (NEGATIVE) Influenza Type B Ag (NEGATIVE) RSV (PCR) (NEGATIVE) SARS-CoV-2 (PCR) (NEGATIVE) ABO Group Rh Factor Antibody Screen (NEGATIVE) Crossmatch COMPATIBLE COMPATIBLE COMPATIBLE (COMPATIBLE) 04/04/23 04/04/23 04/04/23 Range/Units 12:42 13:31 Unknown WBC (4.0-10.5) x10^3/uL RBC (4.1-5.4) x10^6/uL Hgb (12.0-16.0) g/dL Hct (35-47) % MCV (78-100) fL MCH (26-32) pg MCHC (32-36) g/dL RDW (11.5-14.0) % Plt Count (150-450) x10^3/uL MPV (7.5-11.0) fL Segmented Neutrophils (36.0-66.0) % Lymphocytes (Manual) (24-44) % Monocytes (Manual) (0.0-12.0) % Hypochromia Toxic Granulation Platelet Estimate (NORMAL) RBC Morphology Anisocytosis Macrocytosis Smear Path Review PT (9.4-12.5) SECONDS INR (0.8-3.0) APTT (25.1-36.5) SECONDS Sodium (137-145) mmol/L Potassium (3.5-5.1) mmol/L Chloride (98-107) mmol/L Carbon Dioxide (22-30) mmol/L Anion Gap (5-15) MEQ/L BUN (7-17) mg/dL Creatinine (0.52-1.04) mg/dL Estimated GFR ML/MIN Glucose (74-106) mg/dL Lactic Acid 1.1 (0.4-2.0) Calcium (8.4-10.2) mg/dL Magnesium (1.6-2.3) mg/dL Total Bilirubin (0.2-1.3) mg/dL AST (14-36) U/L ALT (0-35) U/L Alkaline Phosphatase (38-126) U/L Troponin I (0.000-0.034) ng/mL NT-Pro-B Natriuret Pep (<300) pg/mL Serum Total Protein (6.3-8.2) g/dL Albumin (3.5-5.0) g/dL Procalcitonin (0.030-0.080) ng/mL Urine Color Yellow (Yellow) Urine Appearance Clear (Clear) Urine pH 6.0 (4.6-8.0) Ur Specific [place] 1.015 (1.005-1.030) Urine Protein 30 (Negative) Urine Glucose (UA) Negative (Negative) mg/dL Urine Ketones Negative (Negative) Urine Blood Moderate A (Negative) Urine Nitrite Negative (Negative) Urine Bilirubin Negative (Negative) Urine Urobilinogen 0.2 (0.2) mg/dL Ur Leukocyte Esterase Negative (Negative) U Hyaline Cast (Auto) NONE SEEN (0-2) /LPF Urine Microscopic RBC 21-50 A (0-5) /HPF Urine Microscopic WBC 0-2 (0-5) /HPF Ur Epithelial Cells None Seen (None Seen) /HPF Urine Bacteria None Seen (None Seen) /HPF Urine Culture Reflexed ORDERED SEPARATELY (NO) Influenza Type A Ag NEGATIVE (NEGATIVE) Influenza Type B Ag NEGATIVE (NEGATIVE) RSV (PCR) NEGATIVE (NEGATIVE) SARS-CoV-2 (PCR) NEGATIVE (NEGATIVE) ABO Group Rh Factor Antibody Screen (NEGATIVE) Crossmatch (COMPATIBLE) Radiology Exams: Radiology Procedures Category Date Time Status ABDOMEN AND PELVIS W/0 CONTRAS [CT] Stat Exams 04/04/23 10:50 Completed CHEST WITHOUT CONTRAST [CT] Stat Exams 04/04/23 10:50 Completed Multi-Disciplinary Progress Notes: Multi-Disciplinary Progress Notes 04/04/23 09:09 Respiratory Note by Maria Elena Palomo PT PLACED ON 5LPM VIA OXYMASK. O2 SAT 100%. OXYGEN WAS THEN DECREASED TO 3LPM VIA OXYMASK. NURSE AWARE. Initialized on 04/04/23 09:09 - END OF NOTE Assessment/Plan (1) Acute blood loss anemia (ABLA) Current Visit: Yes Status: Acute Assessment & Plan: - Chest CT 04/04/23 IMPRESSION: In comparison with the prior study dated 04/02/2023, no significant interval changes in the chest findings apart from new minimal right pleural effusion. However; the scanned upper abdomen redemonstrated multiple hepatic lesions, the largest is again seen in the right hepatic lobe showing more hyperdense contents in comparison to the previous study probably suggesting hemorrhage within, for correlation with CT abdomen and better assessment by dedicated triphasic CT study of the liver. - CT Abd/pelvis 02/15 IMPRESSION: 1. Compared to the previous study dated 04/02/2023. 2. An overall stationary course of the disease process as follows: 3. Redemonstration of enlarged liver with hypodense mass lesions, the largest of which measures 13 X 12.5 X 12.5 cm and showing areas of central necrosis within it, would recommend Triphasic CT abdomen for further evaluation and better characterization of the mass lesion. 4. Non-obstructing right lower pole renal calculus. 5. Faint hypodense lesion at the midpole cortex of left kidney measuring about 18 x 21 mm suggesting left renal cyst. 6. Stable Right lung calcified nodules when compared to previous study. 7. Rest of the findings show no time interval abnormality. - 2 units PRBC gave in ER - recheck Hgb in AM - Hospice per pt and family request Code(s): K76.89 - OTHER SPECIFIED DISEASES OF LIVER (2) Acute blood loss anemia (ABLA) Current Visit: Yes Status: Acute Assessment & Plan: - Hgb 5 in ER - 2 units of blood gave - 2nd unit had to be slowed down due to reaction - reaction was elevated temp - 4LNC Code(s): D62 - ACUTE POSTHEMORRHAGIC ANEMIA (3) Hospice care Current Visit: Yes Status: Acute Assessment & Plan: -[facility] coming tonight - they will take care of meds Code(s): D62 - ACUTE POSTHEMORRHAGIC ANEMIA (2) Hospice care Current Visit: Yes Status: Acute (3) Intrahepatic hemorrhage Current Visit: Yes Status: Acute Code(s): K76.89 - OTHER SPECIFIED DISEASES OF LIVER (4) Abdominal pain Current Visit: No Status: Acute Code(s): R10.9 - UNSPECIFIED ABDOMINAL PAIN
[2023-04-05 07:01] VITALS: O2SAT 100
[2023-04-05 07:05] VITALS: TEMP 100.4
[2023-04-05 11:40] LABS: Hematocrit 19.4 % (35-47); Mean Cell Volume 93.3 fL (78-100); Mean Corpuscular Hemoglobin 30.8 pg (26-32); Mean Platelet Volume 10.7 fL (7.5-11.0); Platelet Count 90 x10^3/uL (150-450); Red Blood Count 2.08 x10^6/uL (4.1-5.4); Red Cell Distribution Width 16.6 % (11.5-14.0); White Blood Count 12.8 x10^3/uL (4.0-10.5)
[2023-04-05 11:44] LABS: Hemoglobin 6.4 g/dL (12.0-16.0)
--- NOTE | 2023-04-05 12:06 | CONS ---
TELE-CONSULT DATE: 04/04/2023 HISTORY: I was called by Dr. Mars from the emergency room earlier in the day. The patient is an 88-year-old with history of atrial fibrillation, been on Eliquis. She was in the emergency room apparently yesterday with some dyspnea and upper abdominal pain. She had a hemoglobin of 10 at that time. She apparently was released and came back today her hemoglobin was 5. CT scan showed question of necrotic air in the liver. It sounded to me over the phone that she had bled into the liver as there is no other retroperitoneal hematoma and she is not having any bloody stools. They initially asked me to see the patient for possible endoscopy. I later called back. The emergency room doctor just spoke with the family and they decided to make her Hospice care and Do Not Resuscitate. The Hospitalist admitted her. I spoke with the house nurse gas distribution supervisor at this time. At this time they do not need surgical consult for endoscopy. I agree it would likely be futile as it seemed that she had anticoagulation complications being on Eliquis and bleed in her liver. Again, this was a telephone consult from the emergency room physician. The patient was not examined. LAB DATA AND TESTS: White count is 14, hemoglobin 5 down from 10 the day before, bilirubin 1.4, AST 386, ALT 281. Urine was negative the day before. Additionally, the radiologist on the read did not make it clear but it sounded like the patient had some liver bleed. It sounded like she was pale and tachycardic. She was given some blood and asked to consider tertiary center. Although we are available for upper endoscopy if the patient is stable given the liver findings. If the family wanted to be aggressive would be best served at a tertiary center unless they wanted to make the patient Hospice. I called back was able to pull up the CT scan. Once I was in the hospital system it allowed me to pull the CT scan up and it looked to me that there is definitely a lesion in the liver most likely accounting for the 5 gm hemoglobin drop. PAST MEDICAL HISTORY: Myocardial infarction, migraine, atrial fibrillation, sleep apnea, arthritis. PAST SURGICAL HISTORY: Lumbar laminectomy. Right carotid endarterectomy. Hysterectomy. HOME MEDICATIONS: Includes Eliquis, topiramate, Benzonatate, rosuvastatin, tramadol, levothyroxine, carvedilol, famotidine. ALLERGIES: METHOTREXATE. SOCIAL HISTORY: No smoking. IMPRESSION: Again, I personally reviewed the patient's CT scan of the abdomen before she bled into her liver and hemoglobin drop. At this time, the family decided to make her Hospice care. I spoke with the ice house supervisor and they no longer need any surgical consult on the case. Continue comfort measures at this time. She was admitted under Dr. Joel the Tele-Hospitalist. Again, I spoke to the ice house supervisor as well as a couple different times to Dr. Mars. I will sign off at this time as the patient was made Hospice.
--- NOTE | 2023-04-05 12:17 | PCM.DS ---
Discharge Summary Date of Admission: 04/04/23 16:17 Date of Discharge: 04/05/23 Admitting Physician: DENNY ZAPATA MD Primary Care Provider: Rosanne RUSHING Allergies Allergies methotrexate Adverse Reaction (Severe, Verified 04/04/23 09:18) [facility] Summary - Hospital Course Hospital Course: Ms. Chávez is an 88 year old female with pmhx of stroke, AFIB (on eliquis), CAD, HLD, HTN, MS, hypothyroidism DDD, and OA evaluated by ED 04/03/23 for c/o anterolateral chest wall pain and some upper abdominal discomfort with nausea and vomiting, and who presented to ED 04/04/23 with c/o worsening generalized weakness and shortness of breath. Lab findings were remarkable for a significant drop in hemoglobin from [address] down [address] of the c/a/p demonstrates a hepatic cyst as the possible source of bleeding. Patient was advised to transfer to higher level of care but declines. She has signed DNR paperwork and is requesting comfort care. [facility] consulted, patient to transfer home today for comfort care per her wishes. Discharge Note Latest Assessment & Plan (1) Intrahepatic hemorrhage Current Visit: Yes Status: Acute Assessment & Plan: - Chest CT 04/04/23 IMPRESSION: In comparison with the prior study dated 04/02/2023, no significant interval changes in the chest findings apart from new minimal right pleural effusion. However; the scanned upper abdomen redemonstrated multiple hepatic lesions, the largest is again seen in the right hepatic lobe showing more hyperdense contents in comparison to the previous study probably suggesting hemorrhage within, for correlation with CT abdomen and better assessment by dedicated triphasic CT study of the liver. - CT Abd/pelvis 02/15 IMPRESSION: 1. Compared to the previous study dated 04/02/2023. 2. An overall stationary course of the disease process as follows: 3. Redemonstration of enlarged liver with hypodense mass lesions, the largest of which measures 13 X 12.5 X 12.5 cm and showing areas of central necrosis within it, would recommend Triphasic CT abdomen for further evaluation and better characterization of the mass lesion. 4. Non-obstructing right lower pole renal calculus. 5. Faint hypodense lesion at the midpole cortex of left kidney measuring about 18 x 21 mm suggesting left renal cyst. 6. Stable Right lung calcified nodules when compared to previous study. 7. Rest of the findings show no time interval abnormality. - 2 units PRBC gave in ER - recheck Hgb in AM - Hospice per pt and family request Code(s): K76.89 - OTHER SPECIFIED DISEASES OF LIVER (2) Acute blood loss anemia (ABLA) Current Visit: Yes Status: Acute Assessment & Plan: - Hgb 5 in ER - 2 units of blood gave - 2nd unit had to be slowed down due to reaction - reaction was elevated temp - 4LNC Code(s): D62 - ACUTE POSTHEMORRHAGIC ANEMIA (3) Hospice care Current Visit: Yes Status: Acute Assessment & Plan: -[facility] coming tonight - they will take care of meds I spent 35 minutes [id number] with the patient on the day of discharge performing discharge exam, discussing hospital stay and discharge instructions with patient and caregivers, preparation of discharge records, prescriptions & referral forms and addressing any questions/concerns the patient had as docume nted above. - Vitals & Intake/Output Vital Signs: Vital Signs Temperature 100.4 F 04/05/23 07:04 Pulse Rate 81 04/04/23 22:57 Respiratory Rate 16 04/05/23 04:00 Blood Pressure 135/60 04/04/23 16:19 O2 Sat by Pulse Oximetry 100 04/05/23 07:04 Intake & Output: Intake & Output 04/03/23 04/04/23 04/05/23 04/06/23 11:59 11:59 11:59 11:59 Intake Total 0 Output Total 550 Balance -550 Weight 86.636 kg 94.3 kg - Lab Result Diagrams: 04/05/23 11:25 04/04/23 09:35 Lab Results-Last 24 Hrs: Lab Results-Last 24 Hours 04/04/23 04/04/23 04/04/23 Range/Units 11:00 11:00 11:00 WBC (4.0-10.5) x10^3/uL RBC (4.1-5.4) x10^6/uL Hgb (12.0-16.0) g/dL Hct (35-47) % MCV (78-100) fL MCH (26-32) pg MCHC (32-36) g/dL RDW (11.5-14.0) % Plt Count (150-450) x10^3/uL MPV (7.5-11.0) fL Lactic Acid (0.4-2.0) Urine Color (Yellow) Urine Appearance (Clear) Urine pH (4.6-8.0) Ur Specific [place] (1.005-1.030) Urine Protein (Negative) Urine Glucose (UA) (Negative) mg/dL Urine Ketones (Negative) Urine Blood (Negative) Urine Nitrite (Negative) Urine Bilirubin (Negative) Urine Urobilinogen (0.2) mg/dL Ur Leukocyte Esterase (Negative) U Hyaline Cast (Auto) (0-2) /LPF Urine Microscopic RBC (0-5) /HPF Urine Microscopic WBC (0-5) /HPF Ur Epithelial Cells (None Seen) /HPF Urine Bacteria (None Seen) /HPF Urine Culture Reflexed (NO) Crossmatch COMPATIBLE COMPATIBLE COMPATIBLE (COMPATIBLE) 04/04/23 04/04/23 04/05/23 Range/Units 12:42 13:31 11:25 WBC 12.8 H (4.0-10.5) x10^3/uL RBC 2.08 L (4.1-5.4) x10^6/uL Hgb 6.4 L* D (12.0-16.0) g/dL Hct 19.4 L (35-47) % MCV 93.3 D (78-100) fL MCH 30.8 (26-32) pg MCHC 33.0 (32-36) g/dL RDW 16.6 H (11.5-14.0) % Plt Count 90 L (150-450) x10^3/uL MPV 10.7 (7.5-11.0) fL Lactic Acid 1.1 (0.4-2.0) Urine Color Yellow (Yellow) Urine Appearance Clear (Clear) Urine pH 6.0 (4.6-8.0) Ur Specific [place] 1.015 (1.005-1.030) Urine Protein 30 (Negative) Urine Glucose (UA) Negative (Negative) mg/dL Urine Ketones Negative (Negative) Urine Blood Moderate A (Negative) Urine Nitrite Negative (Negative) Urine Bilirubin Negative (Negative) Urine Urobilinogen 0.2 (0.2) mg/dL Ur Leukocyte Esterase Negative (Negative) U Hyaline Cast (Auto) NONE SEEN (0-2) /LPF Urine Microscopic RBC 21-50 A (0-5) /HPF Urine Microscopic WBC 0-2 (0-5) /HPF Ur Epithelial Cells None Seen (None Seen) /HPF Urine Bacteria None Seen (None Seen) /HPF Urine Culture Reflexed ORDERED SEPARATELY (NO) Crossmatch (COMPATIBLE) Micro Results-Entire Visit: Microbiology 04/04/23 13:31 Urine Culture - Preliminary Catherized NO GROWTH TO DATE - Radiology Exams Ordered Rad Exams-Entire Visit: Radiology Procedures Category Date Time Status ABDOMEN AND PELVIS W/0 CONTRAS [CT] Stat Exams 04/04/23 10:50 Completed CHEST WITHOUT CONTRAST [CT] Stat Exams 04/04/23 10:50 Completed - Procedures and Test Procedures and Tests throughout Hospitalization: Therapy Orders & Screens 04/04/23 16:26 Oxygen Nasal Cannula 2 lpm Comment: Respiratory Therapy Consult ONCE Comment: Reason For Exam: Discharge Exam General Appearance: no apparent distress Neurologic Exam: alert, oriented x 3, cooperative Eye Exam: PERRL Ears, Nose, Throat Exam: normal ENT inspection Neck Exam: normal inspection Respiratory Exam: normal breath sounds, lungs clear Cardiovascular Exam: regular rate/rhythm, normal heart sounds Gastrointestinal/Abdomen Exam: soft, normal bowel sounds, tenderness Back Exam: normal inspection Extremity Exam: normal inspection Skin Exam: pale Final Diagnosis/Problem List - Final Discharge Diagnosis/Problem (1) Acute blood loss anemia (ABLA) Current Visit: Yes Status: Acute Code(s): D62 - ACUTE POSTHEMORRHAGIC ANEMIA (2) Hospice care Current Visit: Yes Status: Acute (3) Intrahepatic hemorrhage Current Visit: Yes Status: Acute Code(s): K76.89 - OTHER SPECIFIED DISEASES OF LIVER (4) Abdominal pain Current Visit: No Status: Acute Code(s): R10.9 - UNSPECIFIED ABDOMINAL PAIN - Discharge Discharge Date: 04/05/23 (DC to [facility] for comfort care) Disposition: Home, Self-Care Condition: Critical Prescriptions: Continue Tramadol HCl 50 mg [Ultram 50 mg] 1 tab PO TID PRN Levothyroxine Sodium 25 mcg PO HS Famotidine 40 mg PO HS Carvedilol [Coreg ] 1 tab PO BID Rosuvastatin Calcium 20 mg PO HS Apixaban [Eliquis 5 mg Tablet] 5 mg PO BID Topiramate 50 mg PO HS Benzonatate 200 mg PO TID Follow up with: Rosanne RUSHING [Primary Care Provider] -
[2023-04-05 13:32] LABS: Slide Review YES
== END 2023-04-05 16:35 | disposition home or self-care (01) | DRG 812 ==
LOC: ED 09:00 → MED SURG 16:17
PROVIDERS: ADMIT Internal Medicine; ATTEND Internal Medicine
DX: D62 Acute posthemorrhagic anemia (principal); Z51.5 Encounter for palliative care; K76.89 Other specified diseases of liver; R10.9 Unspecified abdominal pain; I48.91 Unspecified atrial fibrillation; I25.10 Atherosclerotic heart disease of native coronary artery without angina pectoris; E78.5 Hyperlipidemia, unspecified; I10 Essential (primary) hypertension; E03.9 Hypothyroidism, unspecified; D72.829 Elevated white blood cell count, unspecified; Z79.01 Long term (current) use of anticoagulants; Z79.899 Other long term (current) drug therapy; Z86.73 Personal history of transient ischemic attack (TIA), and cerebral infarction without residual deficits
CPT/HCPCS: 0241U; 36000; 36415; 36430; 51702; 71250; 74176; 80053; 81001; 83605; 83735; 83880; 84145; 84484; 85025; 85027; 85610; 85730; 86850; 86900; 86901; 86922; 87040; 87086; 93005; 93041; 94760; 96374; 96375; 96376; 99285; 99291; 99292; J2270; J2405; J3010; P9016; Q3014; A9270-GY